=== PATIENT | male | born 1940 | race Caucasian/White ===

== ENCOUNTER 2016-12-09 13:56 | Inpatient (IN) | payer OTHER ==
[~2016-12-09] VITALS: Ht 182.9 cm; Wt 135.5 kg
--- NOTE | 2016-12-09 15:13 | DIAGNOSTIC IMAGING REPORT ---
RIGHT FOOT MIN 3 VIEWS ROUTINE CLINICAL HISTORY: Foot infection. History of amputation. POSSIBLE OSTEOMYELITIS. COMPARISON: None. DISCUSSION: There are postsurgical changes of a first through fifth transmetatarsal amputation. No destructive lesions are visualized. There are vascular calcifications present. Is difficult to visualize skin overlying the amputation site. Clinical correlation in this regard is advocated. IMPRESSION: Postsurgical changes of a transmetatarsal amputation. No conventional radiographic evidence of acute osteomyelitis. Electronically signed by: Asim Velez M.D. 12/09/2016 3:11 PM Dictated Date/Time: 12/09/2016 3:07 PM
[2016-12-09] MEDS ORDERED: LISI-725 PO (15:16)
[2016-12-09] MEDS ORDERED: GLC/500 PO (15:16)
[2016-12-09] MEDS ORDERED: ASPI81TA28 PO (15:16)
[2016-12-09 15:31] LABS: BASO % 0.1 %; BASO ABS # 0.02 K/uL (0-0.2); COMPLETE YES; EOS % 0.7 %; HEMATOCRIT 40.5 % (42-52); IG% 0.5 %; LYMPH % 10.5 %; LYMPH ABS # 1.45 K/uL (1.2-3.4); MEAN CELL VOLUME 87.9 fL (80-100); MEAN CORPUSCULAR HEMOGLOBIN 30.6 pg (25-34); MEAN CORPUSCULAR HGB CONC 34.8 g/dl (32-36); MEAN PLATELET VOLUME 9.9 fL (7.4-10.4); MONO % 6.8 %; NEUT % 81.4 %; PLATELET COUNT 306 K/uL (130-400); RED BLOOD COUNT 4.61 M/uL (4.7-6.1); WHITE BLOOD COUNT 13.76 K/uL (4.8-10.8)
[2016-12-09] MEDS ORDERED: ZOLPIDEM TARTRATE 5 MG TAB PO PRN (15:45)
[2016-12-09] MEDS ORDERED: OXYCODONE/ACETAMINOPHEN 5-325 TAB PO PRN (15:45)
[2016-12-09] MEDS ORDERED: METOCLOPRAMIDE HCL INJ 5 MG/ML 2 ML VIAL IV PRN (15:45)
[2016-12-09] MEDS ORDERED: ONDANSETRON INJ 2 MG/ML 2 ML VIAL IV PRN ×2 (15:45→17:30)
[2016-12-09] MEDS ORDERED: GLUCOSE 40% GEL 15 GM TUBE PO PRN (15:45)
[2016-12-09] MEDS ORDERED: GLUCOSE 10 TABS/TUBE PO PRN (15:45)
[2016-12-09] MEDS ORDERED: ALUMINUM/MAGNESIUM SUSP 30 ML UDC PO PRN (15:45)
[2016-12-09] MEDS ORDERED: DEXTROSE 50% 50 ML SYR IV PRN (15:45)
[2016-12-09] MEDS ORDERED: DiphenhydrAMINE HCL 50 MG/ML VIAL IV PRN (15:45)
[2016-12-09] MEDS ORDERED: GLUCAGON FOR INJ 1 MG VIAL SQ PRN (15:45)
[2016-12-09] MEDS ORDERED: MAGNESIUM HYDROXIDE SUSP 30 ML UDC PO PRN (15:45)
[2016-12-09 15:46] LABS: INR 1.2 (0.9-1.1); PARTIAL THROMBOPLASTIN RATIO 1.2; PROTHROMBIN TIME (PATIENT) 13.2 SECONDS (9.0-12.0)
[2016-12-09] MEDS ORDERED: INSULIN HUMAN REGULAR SC SCH (16:00)
[2016-12-09 16:06] LABS: BUN/CREATININE RATIO 11.4 (10-20); CREATININE 8.4 mg/dl (0.60-1.40); POTASSIUM 5.8 mmol/L (3.5-5.1)
--- NOTE | 2016-12-09 16:07 | HISTORY & PHYSICAL EXAMINATION ---
DATE OF ADMISSION: 12/09/2016 CHIEF COMPLAINT: Right foot wound. HISTORY OF PRESENT ILLNESS: A 76-year-old diabetic for the past 10 years who presents for evaluation of his right foot. He apparently had unspecified procedure which looks like a transmetatarsal amputation done by a account development executive at [facility] 3-4 days ago he days. It was Dr. Garzon who did this. He was then sent to [place]. He did not understanding anything they were saying or doing and was sent home. He saw visiting nurse today and they referred him to the hospital. [facility] came [facility]. He says he has never been here before. He does not have any pain. His foot has had a wound on if for quite some time. Denies any other medical problems. Denies any chest pain or shortness of breath. PAST MEDICAL HISTORY: Significant for: 1. Type 2 diabetes x10 years. 2. Elevated cholesterol. PAST SURGICAL HISTORY: Include: 1. Right forefoot amputation done 3-4 days ago. 2. Pilonidal cyst excision. ALLERGIES: None. CURRENT MEDICATIONS: 1. Metformin. 2. Lipitor. 3. Aspirin. SOCIAL HISTORY: Significant for a 76-year-old gentleman. He lives in [place]. He is single. He does not smoke. No alcohol intake. FAMILY HISTORY: Noncontributory. REVIEW OF SYSTEMS: Significant for diabetes. Denies any chest pain or shortness of breath. No history of DVT or PE. PHYSICAL EXAMINATION: GENERAL: Reveals a pleasant elderly male who looks to be fairly poorly kept. HEAD, EYES, EARS, NOSE, AND THROAT: Benign. NECK: Supple. No lymphadenopathy. LUNGS: Clear to auscultation. HEART: Regular rate and rhythm. ABDOMEN: Soft, nontender, nondistended. EXTREMITY EXAMINATION: Grossly neurovascularly intact except as follows: Examination of the right lower extremity reveals a transmetatarsal amputation. There is no soft tissue coverage and there is bone exposed. There is necrosis of the skin edges. No gross purulence. He can slightly dorsiflex and plantarflex his foot appropriately. X-RAYS: X-rays of the foot from today reviewed. It shows evidence of a transmetatarsal amputation. There is no significant soft tissue coverage. ASSESSMENT: A 76-year-old male diabetic, status post a right transmetatarsal amputation with obviously exposed bone and no soft tissue coverage and necrosis of the skin edges. He does not have a super active infection, but there is no way this has any chance of healing. The patient does have diffuse edema and even below knee amputation may be a little bit questionable as far as healing. PLAN: We are going to admit him to the hospital. We will start him on some antibiotics. We will get medicine evaluation and optimization. Once she is medically optimized we are going to proceed with a below knee amputation. I explained the risks and benefits and the need for this. The patient clearly understands it and wants to proceed. It is certainly possible that may not heal either. The risks and benefits of this procedure were explained including but not limited to DVT, PE, , infection, neurological injury, neurovascular injury, bleeding problems, failure to heal, need for further surgery, etc. The patient understands and desires to proceed. Informed consent was obtained. We will get a medicine consult. We will begin DVT prophylaxis including thigh-high TEDs and SCDs. We will keep him on his baby aspirin. We will plan on doing this once medically cleared, hopefully tomorrow.
[2016-12-09] MEDS ORDERED: DEXTROSE 50% 50 ML SYR IV STA (16:11)
[2016-12-09] MEDS ORDERED: NovoLIN-R INSULIN PER UNIT CHARGE IV STA (16:11)
[2016-12-09] MEDS ORDERED: ALBUTEROL 0.083% NEBU SOLN 3 ML VIAL INH STA (16:11)
--- NOTE | 2016-12-09 16:30 | DIAGNOSTIC IMAGING REPORT ---
CHEST 2 VIEWS ROUTINE CLINICAL HISTORY: Pre-op COMPARISON STUDY: No previous studies for comparison. FINDINGS: The heart is enlarged. There is no overt failure. There is no focal pulmonary consolidation. There is blunting of the posterior costophrenic angle suggesting small effusions.[ IMPRESSION: Cardiomegaly and suspected small pleural effusions. No evidence of focal pulmonary consolidation Electronically signed by: Asim Velez M.D. 12/09/2016 4:27 PM Dictated Date/Time: 12/09/2016 4:27 PM
[2016-12-09] MEDS ORDERED: SODIUM CHLORIDE 0.9% 500ML 500 ML IV STA (16:31)
[2016-12-09] MEDS ORDERED: CALCIUM GLUCONATE 10% 10 ML VIAL IV STA (16:44)
[2016-12-09] MEDS ORDERED: SODIUM POLYST. SULF SUSP 15G/60ML PO STA (17:16)
[2016-12-09] MEDS ORDERED: SODIUM CHLORIDE 0.9% 1000ML 1,000 ML IV SCH (17:16)
[2016-12-09] MEDS ORDERED: ACETAMINOPHEN 325 MG TAB PO PRN (17:30)
[2016-12-09] MEDS ORDERED: NITROGLYCERIN 0.4 MG SL PER TAB CHARGE SL PRN (17:30)
[2016-12-09] MEDS ORDERED: HydrALAZINE HCL 20 MG/ML VIAL IV PRN (17:45)
--- NOTE | 2016-12-09 19:32 | HISTORY & PHYSICAL EXAMINATION ---
DATE OF ADMISSION: 12/09/2016 HISTORY OF PRESENT ILLNESS: I am going to refer you to a history and physical by Dr. Jose David Gamble of surgery. This patient initially was evaluated for surgical admission because he has a failed transmetatarsal amputation this week and now he has a dehiscence of wound and visible bone. However, when Dr. Gamble evaluated the patient, he was planning on putting a medical consult in but subsequent labs returned the patient was found to be in acute renal failure with hyperkalemia and acute EKG changes. He subsequently was referred to our service for admission. As per Dr. Gamble's history and physical and my interview with the patient, this patient was at [facility] when he developed what sounds to be gangrenous toes. He had a resection, but was unable to be closed, he was transferred to a [place] facility where he had a falling out with the physicians there. He left AMA. He returned late last evening to his home, he was seen by visiting nurse this morning, visiting nurse saw the exposed bone and referred him to [facility]. The patient claims to have significant neuropathy of his feet. He does have some light touch intact; however, his left foot which is a not involved foot has blistering significant with abrasion injury. The patient states he has been diabetic for 10 years. He has been on oral medications of metformin, he takes lisinopril for hypertensive control and aspirin. He is a retired tow truck driver. He has no real pain of his foot right now. Dr. Gamble did see the patient, he did an evaluation of the wound in the ER. He recommended Unasyn therapy. In the ER, the patient did have peaked T waves and he was given calcium carbonate, D50 and insulin. We administered Kayexalate subsequent to that. The patient is agreeable to admission. PAST MEDICAL HISTORY: Really for his diabetes, hypertension, dyslipidemia. He has a history of rheumatic fever as a child and a pilonidal cyst excision. SOCIAL HISTORY: The patient does not drink or smoke, never has. He is retired from driving a truck. FAMILY HISTORY: Only positive for people dying of old age according to the patient. REVIEW OF SYSTEMS: Ten systems were reviewed and are negative unless listed above, the patient says other than his foot being a problem he has really been in quite good shape. He cannot recall having had blisters on his left foot, he says it must be from walking in his shoes, and he said despite his falling out with the physicians in [place], he is agreeable to likely proceed to a BKA with Dr. Gamble. PHYSICAL EXAMINATION: GENERAL: This is a pleasant gentleman. He looks older than his stated age. VITAL SIGNS: Temperature is 36.6, pulse 89, respirations 18, BP 100/61, O2 sat 98 on room air. HEENT: PERRL, EOMI. Oropharynx is dry mucous membranes. NECK: Without lymphadenopathy. There is no JVD. HEART: Irregular despite having rheumatic fever, I hear no murmurs. LUNGS: Clear without wheezes or crackles. Good air movement. ABDOMEN: Normoactive bowel sounds, soft. He has got some panus type edema and he does have some other body edema which makes me concerned this could be from his renal issue or could be from nutritionally deficient from his last hospital stay. EXTREMITIES: Left extremity has blisters both roofed and unroofed on the left foot. He has got dirt on his soles apparently walking barefooted. He does have light touch intact. His right foot is bandaged. I am going to refer you to Dr. Gamble's note. Dr. Gamble did extensive examination and dressing of this wound. He has 1-2+ edema on the left leg. NEUROLOGICALLY: He is awake, alert and appropriate. Cranial nerves II through XII are intact. LABORATORY DATA: As mentioned, shows a BUN and creatinine of 96 and 8.4 with a bicarbonate of 18 and potassium of 5.8. He has a white count of 13, H\T\H 14 and 40 and platelet count 306. Coags are with INR of 1.2. Urinalysis for sediment is pending. He had an x-ray of his foot which showed transmetatarsal amputation. He had a chest x-ray which showed no active disease in his chest. No significant pleural effusions. An EKG showing sinus rhythm with peaked T waves. ASSESSMENT: A 76-year-old male here with acute renal failure, hyperkalemia and EKG changes. PLAN: For acute renal failure. The patient will be put on a bicarbonate drip. He will have his lisinopril held. He will be given gentle hydration despite his peripheral edema. Urine will be checked for sediment and nephrology consult will be called. I did personally speak with Dr. Inocencio Blair this evening, he is aware of the case. He will come in if we need him to come in at any time. Regarding his cardiac clearance, the patient has rheumatic fever, he has peripheral edema. This certainly could be if he has some type of nephrotic syndrome or renal failure; however, we will check an echocardiogram as we may be pursuing surgery in the near future. For his hypertension, we will employ hydralazine p.r.n. for blood pressure control. For his diabetes, we will put him on a sliding-scale insulin. For his left foot wounds we will employ nursing wound care at this present time and Dr. Gamble will direct his wounds. For his foot, Unasyn will be maintained and orthopedics will be Dr. Gamble. Currently, given the fact that he has got surgery postponed DVT prevention will be based on heparin therapy. The patient is a full code.
--- NOTE | 2016-12-09 19:51 | DIAGNOSTIC IMAGING REPORT ---
RENAL ULTRASOUND HISTORY: Acute on chronic kidney injury. COMPARISON: None. FINDINGS: Right kidney: 11.0 cm. No hydronephrosis. Normal corticomedullary differentiation and cortical thickness. Left kidney: 12.5 cm. No hydronephrosis. Normal corticomedullary differentiation and cortical thickness. Focal cortical thickening at the interpolar region consistent with a prominent column of Nadeem. Bladder: No bladder wall thickening. The ureteral jets are not identified during the examination. IMPRESSION: Normal renal ultrasound. Electronically signed by: Raheem Terrazas M.D. 12/09/2016 7:49 PM Dictated Date/Time: 12/09/2016 7:47 PM
[2016-12-09 20:00] VITALS: BP 107/64; PULSE 95; TEMP 36.4; O2SAT 93; Ht 182.9 cm; Wt 135.5 kg
--- NOTE | 2016-12-09 20:01 | EMERGENCY ROOM VISIT NOTE ---
History Report prepared by Eliud: Berkley Choi Under the Supervision of: Dr. Mike Ansari M.D. First contact with patient: 14:02 Stated Complaint: RT FOOT INFECTION History of Present Illness The patient is a 76 year old male who presents to the Emergency Room with complaints of a worsening right foot infection that was noticed earlier today by his home health nurse. The patient came to the ED via ambulance from home. The patient states that he had all of his right foot partially amputated 4-5 days ago in [place] by Dr. Garzon - Podiatric Surgery due to necrosis. Dr. Garzon told the patient that he could not amputate any higher than he did, but the patient states that Dr. Garzon indicated that he needed to have further intervention on his right leg. The patient goes on to say that he just got home from a hospital in [place] 2 weeks ago, but he states he did not do any surgery there. According to the nurse, the patient left the hospital in [place] against medical advice. He states that his home health nurse evaluated his right foot today and felt that he needed to come into the ED for further evaluation and management. His home health nurse did not call Dr. Garzon prior to sending him into the ED. The patient states that he is not on any antibiotics. He denies any pain in his right foot currently, and denies any fevers, chest pain, trouble breathing, and vomiting. The patient adds that he is diabetic and states that his sugars have been normal lately. Source of History: patient, nursing staff Onset: earlier today Position: foot (right) Quality: other (infection) Timing: worsening Associated Symptoms: No chest pain, No fevers, No vomiting Note: no right foot pain, no trouble breathing Review of Systems See HPI for pertinent positives & negatives. A total of 10 systems reviewed and were otherwise negative. Past Medical & Surgical Medical Problems: (1) Acute renal failure (2) Diabetes mellitus (3) Hypertension (4) Right Foot Osteomyelitis Family History Family history was reviewed; no changes noted. Social History Marital Status: single Housing Status: lives alone Current/Historical Medications Scheduled Aspirin (Aspirin Ec), 81 MG PO DAILY Lisinopril (Zestril), 20 MG PO DAILY Metformin Hcl (Glucophage), 500 MG PO TID Allergies Coded Allergies: No Known Allergies (Unverified , 12/09/16) Physical Exam Vital Signs Date Time Temp Pulse Resp B/P Pulse Ox O2 Delivery O2 Flow Rate FiO2 12/09/16 19:00 96 19 114/69 95 12/09/16 18:21 91 18 102/61 94 Room Air 12/09/16 16:55 89 18 100/61 98 Room Air 12/09/16 14:16 102 12/09/16 14:12 36.6 104 20 103/68 94 Room Air Physical Exam Constitutional: Vital signs reviewed. Eyes: Pupils are equal round reactive to light. Conjunctiva are noninjected. ENT: Pharynx is clear without erythema or exudate. Mucous membranes are moist. Neck supple without meningeal signs. Respiratory: Clear to auscultation bilaterally. Breath sounds are equal bilaterally. Cardiovascular: Regular rate and rhythm. No rubs or gallops. GI: Soft, nondistended and nontender. Bowel sounds are present. Musculoskeletal: Bilateral pitting edema. Partially amputation of midfoot on the right side with bone exposed and gangrenous tissue in margins. Mild erythema up to the lower leg. No tenderness. No drainage. Integumentary: As above. Neurological: The patient is awake and alert. No focal deficits. Psychiatric: Normal affect. Medical Decision & Procedures ER Provider Diagnostic Interpretation: X-ray results as stated below per interpretation by me and the radiologist: RIGHT FOOT MIN 3 VIEWS ROUTINE IMPRESSION: Postsurgical changes of a transmetatarsal amputation. No conventional radiographic evidence of acute osteomyelitis. Electronically signed by: Asim Velez M.D. 12/09/2016 3:11 PM Dictated Date/Time: 12/09/2016 3:07 PM CHEST 2 VIEWS ROUTINE IMPRESSION: Cardiomegaly and suspected small pleural effusions. No evidence of focal pulmonary consolidation Electronically signed by: Asim Velez M.D. 12/09/2016 4:27 PM Dictated Date/Time: 12/09/2016 4:27 PM Laboratory Results 12/09/16 15:20 Red Blood Count 4.61, Mean Corpuscular Volume 87.9, Mean Corpuscular Hemoglobin 30.6, Mean Corpuscular Hemoglobin Concent 34.8, Mean Platelet Volume 9.9, Neutrophils (%) (Auto) 81.4, Lymphocytes (%) (Auto) 10.5, Monocytes (%) (Auto) 6.8, Eosinophils (%) (Auto) 0.7, Basophils (%) (Auto) 0.1, Neutrophils # (Auto) 11.19, Lymphocytes # (Auto) 1.45, Monocytes # (Auto) 0.93, Eosinophils # (Auto) 0.10, Basophils # (Auto) 0.02 12/09/16 15:20 Test 12/09/16 15:20 White Blood Count 13.76 K/uL (4.8-10.8) Red Blood Count 4.61 M/uL (4.7-6.1) Hemoglobin 14.1 g/dL (14.0-18.0) Hematocrit 40.5 % (42-52) Mean Corpuscular Volume 87.9 fL (80-100) Mean Corpuscular Hemoglobin 30.6 pg (25-34) Mean Corpuscular Hemoglobin Concent 34.8 g/dl (32-36) Platelet Count 306 K/uL (130-400) Mean Platelet Volume 9.9 fL (7.4-10.4) Neutrophils (%) (Auto) 81.4 % Lymphocytes (%) (Auto) 10.5 % Monocytes (%) (Auto) 6.8 % Eosinophils (%) (Auto) 0.7 % Basophils (%) (Auto) 0.1 % Neutrophils # (Auto) 11.19 K/uL (1.4-6.5) Lymphocytes # (Auto) 1.45 K/uL (1.2-3.4) Monocytes # (Auto) 0.93 K/uL (0.11-0.59) Eosinophils # (Auto) 0.10 K/uL (0-0.5) Basophils # (Auto) 0.02 K/uL (0-0.2) RDW Standard Deviation 50.1 fL (36.4-46.3) RDW Coefficient of Variation 16.2 % (11.5-14.5) Immature Granulocyte % (Auto) 0.5 % Immature Granulocyte # (Auto) 0.07 K/uL (0.00-0.02) Erythrocyte Sedimentation Rate 30 mm/hr (0-14) Prothrombin Time 13.2 SECONDS (9.0-12.0) Prothromb Time International Ratio 1.2 (0.9-1.1) Activated Partial Thromboplast Time 31.7 SECONDS (21.0-31.0) Partial Thromboplastin Ratio 1.2 Anion Gap 14.0 mmol/L (3-11) Est Creatinine Clear Calc Drug Dose 10.9 ml/min Estimated GFR () 6.5 Estimated GFR (Non- 5.6 BUN/Creatinine Ratio 11.4 (10-20) Calcium Level 8.0 mg/dl (8.5-10.1) Total Bilirubin 1.3 mg/dl (0.2-1) Direct Bilirubin 1.0 mg/dl (0-0.2) Aspartate Amino Transf (AST/SGOT) 27 U/L (15-37) Alanine Aminotransferase (ALT/SGPT) 31 U/L (12-78) Alkaline Phosphatase 246 U/L (45-117) C-Reactive Protein 3.49 mg/dl (0-0.29) Total Protein 6.2 gm/dl (6.4-8.2) Albumin 1.9 gm/dl (3.4-5.0) Laboratory results as reviewed by me. Medications Administered Medications (Trade) Dose Ordered Sig/Marcelino Route Start Time Stop Time Status Last Admin Dose Admin Insulin Human Regular (novoLIN-R U-100 PER UNIT) 10 units NOW STAT IV 12/09/16 16:11 12/09/16 16:13 DC 12/09/16 16:52 10 UNITS Dextrose (Dextrose 50% 50ML Syringe) 50 ml NOW STAT IV 12/09/16 16:11 12/09/16 16:13 DC 12/09/16 16:53 50 ML Albuterol Sulfate 2.5 mg 2.5 mg NOW STAT INH 12/09/16 16:11 12/09/16 16:13 DC 12/09/16 16:59 2.5 MG Sodium Chloride (Nss 500ml) 500 ml @ 999 mls/hr Q31M STAT IV 12/09/16 16:31 12/09/16 17:01 DC 12/09/16 16:52 999 MLS/HR Calcium Gluconate (Calcium Gluconate 10%) 1,000 mg NOW STAT IV 12/09/16 16:44 12/09/16 16:45 DC 12/09/16 17:00 1,000 MG ECG Indication: other (hyperkalemia) Rate (beats per minute): 88 Rhythm: normal sinus Findings: peaked T-waves (in precordial leads), other (QRS widening to 130 ms) Comparison ECG Date: no prior available ED Course 1403: The patient was evaluated in room C10. A complete history and physical exam was performed. 1428: The ED office secretary tried to contact Dr. Garzon, but he is out of town until Monday. 1506: I spoke with Dr. Gamble of Orthopedic Surgery. We discussed the patient. The patient will be further evaluated by him. 1515: Dr. Gamble is in the ED to evaluate the patient. 1531: Upon reevaluation, the patient appeared to be resting comfortably. I discussed today's findings with him. He verbalized agreement of the treatment plan. Dr. Gamble is going to admit the patient for a BKA. 1611: Ordered Albuterol Sulfate 2.5 mg INH, Dextrose 50 ml IV, Insulin Human Regular 10 units IV 1615: [facility]'s [facility] results. We discussed the patient and his results. The patient will be further evaluated by him. 1617: I informed Dr. Gamble that I discussed the patient's case with Dr. Salcido and that Dr. Salcido will admit the patient instead. 1630: I reassessed the patient. He informed me that he doesn't have a history of kidney problems, but he doesn't have easy access to water and has not been drinking much recently. I discussed the change in the treatment plan with him. He verbalized agreement. 1631: Ordered Sodium Chloride 500 ml @ 999 mls/hr IV 1644: Ordered Calcium Gluconate 1000 mg IV 1835: Dr. Vaz of Internal Medicine at [place] called to inform me that the patient's creatinine was not as high as it is today during his recent hospitalization. He also informed me that the patient was sent to [place] for a BKA but he refused to let the specialists evaluate him or provide him any management. Medical Decision This is a 76-year-old male who presents with a partial amputation to his right foot several days ago. I did perform a limited focused review of portions of the patient's old chart on the electronic medical record. The patient has had no prior visits to this hospital. I did evaluate the patient as noted above. The patient is presenting status post partial amputation of his right foot. The bones are exposed and there is necrosis to the soft tissue surrounding it. IV access was established. The patient was placed on a continuous medical insurance claims processor. I did order and personally review the patient's x-rays as described above. I did order and review the patient's blood work as noted in the electronic medical record. His white blood cell count is elevated. He also has a creatinine of over 8 with hyperkalemia. I did order a twelve-lead EKG which shows signs consistent with hyperkalemia including peaked T waves. He does have some widening of his QRS which I am unable to determine if this is new or old and so I did treat him with IV calcium gluconate. He was also given albuterol via nebulizer and IV insulin and dextrose for his hyperkalemia. The patient was evaluated by Dr. Gamble of orthopedics who will perform BKA. I did discuss the case with Dr. Salcido who will admit the patient. I did attempt to call his hazmat tanker driver but he was unavailable. Consults Time Called: 1503 Consulting Physician: Dr. Gamble - Orthopedic Surgery Returned Call: [address] Gamble of Orthopedic Surgery. We discussed the patient. The patient will be further evaluated by him. Additional Consults: Time Called: 1613 Consulted Physician: Dr. Salcido - [facility] Returned Call: 1615 Additional Comments: I spoke with Dr. Salcido of [facility] Hospitalist Service due to the patient's lab results. We discussed the patient and his results. The patient will be further evaluated by him. Impression Primary Impression: Acute renal failure Additional Impressions: Hyperkalemia Infection of right foot Critical Care I have personally spent 40 minutes of critical care time in the direct management of this patient. This includes bedside care, interpretation of diagnostic studies and testing, discussion with consultants and patient, and other required patient management activities. This time is in excess of all separately billable procedures. Scribe Attestation The scribe's documentation has been prepared under my direct and personally reviewed by me in its entirety. I confirm that the note above accurately reflects all work, treatment, procedures, and medical decision making performed by me. Departure Information Dispostion Being Evaluated By Hospitalist Referrals No Doctor, Assigned (PCP) Problem Qualifiers Primary Impression: Acute renal failure Acute renal failure type: unspecified Qualified Codes: N17.9 - Acute kidney failure, unspecified
[2016-12-09] MEDS ORDERED: AMPICILLIN/SULBACTAM CONSULT ACTIVE PRN ×2 (20:30)
[2016-12-09] MEDS: INSULIN ASPART 100 UNITS/ML 3 ML PEN SC SCH (21:00)
[2016-12-09] MEDS: DOCUSATE SODIUM 100 MG CAP PO SCH (21:25)
[2016-12-09] MEDS: FERROUS SULFATE 325 MG TAB PO SCH (21:26)
[2016-12-09] MEDS: AMPICILLIN/SULBACTAM SOD INJ 3,000 MG in SODIUM CHLORIDE 0.9% 100ML 100 ML IV SCH (21:27)
[2016-12-09] MEDS: HEPARIN SOD 5000 UNIT/0.5 ML CARP SQ SCH (21:27)
[2016-12-09] MEDS: SODIUM BICARBONATE 8.4% INJ 100 MEQ in SODIUM CHLORIDE 0.45% 1000ML 1,000 ML IV SCH (21:28)
[2016-12-09 22:59] VITALS: BP 107/70; PULSE 90; TEMP 36.5; O2SAT 96
[2016-12-10] VITALS (7 sets, daily range): BP systolic 98–114; BP diastolic 58–78; PULSE 87–96; TEMP 36.4–36.7; O2SAT 95–99
[2016-12-10 01:17] LABS: URINE APPEARANCE CLOUDY (CLEAR); URINE BILIRUBIN NEG (NEG); URINE COLOR DK YELLOW; URINE NITRITE NEG (NEG); URINE SPECIFIC GRAVITY 1.015 (1.000-1.030); UROBILINOGEN NEG (NEG)
[2016-12-10 01:23] LABS: MANUAL MICROSCOPIC REQUIRED? NO; REVIEW REQ? YES
[2016-12-10 01:41] LABS: URINE PATH CASTS 0-3 GRANULAR CASTS /lpf (0)
[2016-12-10 06:07] LABS: ESTIMATED AVERAGE GLUCOSE 163 mg/dl; HA1C FLAG Normal (Normal)
[2016-12-10] MEDS: INSULIN ASPART 100 UNITS/ML 3 ML PEN SC SCH ×4 (07:00→21:00)
[2016-12-10] MEDS: FERROUS SULFATE 325 MG TAB PO SCH ×3 (07:30→16:45)
[2016-12-10 07:45] LABS: HEMATOCRIT 39.6 % (42-52); MEAN CORPUSCULAR HEMOGLOBIN 31.5 pg (25-34); MEAN CORPUSCULAR HGB CONC 35.4 g/dl (32-36); MEAN PLATELET VOLUME 10.2 fL (7.4-10.4); PLATELET COUNT 302 K/uL (130-400); RED BLOOD COUNT 4.45 M/uL (4.7-6.1); WHITE BLOOD COUNT 12.59 K/uL (4.8-10.8)
[2016-12-10] MEDS: SODIUM BICARBONATE 8.4% INJ 100 MEQ in SODIUM CHLORIDE 0.45% 1000ML 1,000 ML IV SCH ×2 (08:00→17:36)
[2016-12-10 08:33] LABS: BUN/CREATININE RATIO 10.6 (10-20); CREATININE 8.4 mg/dl (0.60-1.40); POTASSIUM 5.3 mmol/L (3.5-5.1)
[2016-12-10 08:54] LABS: PHOSPHORUS 8.4 mg/dl (2.5-4.9)
[2016-12-10] MEDS ORDERED: LISINOPRIL 20 MG TAB PO SCH (09:00)
[2016-12-10] MEDS: ASPIRIN 81 MG ECTAB PO SCH (09:00)
[2016-12-10] MEDS: HEPARIN SOD 5000 UNIT/0.5 ML CARP SQ SCH ×2 (09:00→21:00)
[2016-12-10] MEDS: PANTOprazole SOD 40 MG TAB PO SCH (09:00)
[2016-12-10] MEDS: DOCUSATE SODIUM 100 MG CAP PO SCH ×2 (09:00→21:00)
--- NOTE | 2016-12-10 09:07 | PROGRESS NOTE ---
DATE: 12/10/2016 SUBJECTIVE: A 76-year-old gentleman, admitted with right forefoot amputation, gangrene and necrosis. He has been now admitted by the medicine service due to renal dysfunction. He wants to just be discharged. He does not want any further care. He is in a sound mind and just wants to go home. He just wants not to be disturbed. He knows that this is likely a terminal event if he does not seek further care. OBJECTIVE: VITAL SIGNS: Temperature is 36.5. Vital signs are stable. LABORATORY DATA: White cell count 12.59, hemoglobin 14.0, sed rate 30, C-reactive protein 3.49 and creatinine 8.40. 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 This gentleman is a fairly sick gentleman despite his appearance. He just wanted to go home. I did explain to him that he goes home without care, it likely would be a terminal event, his renal function will just deteriorate and he will likely pass away. He is fully aware of this and he just wants to go home and not be disturbed. PLAN: We will provide supportive care for this gentleman. He just needs some routine wound care. Antibiotics could be provided. Options are; no antibiotics versus maybe just some Augmentin three times a day. He should have wound care twice a day; just a wet to dry dressing would be adequate. Any questions can be directed to me at [phone]. [id number]
--- NOTE | 2016-12-10 10:24 | Nephrology Consultation ---
Nephrology Consultation Date & Providers Date of Consultation: Dec 10, 2016. Primary Care Provider: No Doctor, Assigned Referring Provider: Reason for Consultation [place] History of Present Illness Mr. Tomi Rolon is a 76-year-old male with diabetes mellitus who was admitted to [facility] yesterday evening for evaluation of an open wound on his right foot. 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 I called [facility] and was able to at least discern that serum creatinine was 4.76 on December 04, 2016. Additional records and labs are pending. The wound was not able to be effectively closed and the patient was transferred to [facility] [place], operated by [facility] for orthopedic intervention. At that time, the patient signed himself out of the hospital against medical advice. He returned home and has had routine wound care. At the encouragement of the wound care nurse, Mr Rolon presented to the emergency department at [facility] yesterday evening for evaluation of protruding bone from his wound. He was evaluated by Dr. Gamble and recommendations for a [id number] amputation were made. Patient was admitted to the medical service. I spoke with Dr. Strange yesterday evening on the phone at the time of admission. Laboratory studies are notable for renal failure with a serum creatinine of greater than 8 milligrams/deciliter. Patient was hyperkalemic with a potassium of 5.8 with a notable metabolic acidosis with an anion gap. He is hypoalbuminemic with evidence of increased total body water. calcium gluconate was administered and the patient was placed on quality assurance monitor final. EKG reviewed. Hyperkalemia was treated with a dose of Kayexalate and bicarbonate infusion was started overnight. This morning the patient passed that all IV fluids be stopped. He is insistent that he wants to go home not receive any additional medical care at this time. He was able to speak with Dr. Gamble this morning. Patient acknowledges that without appropriate medical attention his life expectancy is very limited. He did not express any discourage min discussing the dying process. He is awaiting his daughters to come to the hospital and is agreeable to letting me speak in detail with them when they arrive here. He was initially receptive to the idea of hemodialysis. He lives about [place] miles from the [facility] Dialysis unit in [facility]. Reported no in several friends were on hemodialysis. However, he is resistant to the idea of receiving any additional surgical interventions and does not want to stay in the hospital to allow appropriate initiation of dialysis. I spent at least 50 minutes with the patient discussing these issues and reviewing his goals of care. Mr. Rolon reports that his philosophy has always been to minimize medical interventions. He refused insulin in the past. The patient reports that he did regularly follow up with a doctor in [facility] but denies ever being told that he had abnormal renal function. He focuses on quality life as he perceives that. He states that he acknowledges that he will not live forever and wishes to be spend his remaining time at home watching baseball. Mr. Rolon reports that his baseline activity tolerance has been poor. He has been considering buying an electric wheelchair. He has had notable increasing lower extremity edema for months. He has dyspnea with minimal activity. He ambulates with a walker. Appetite has been poor for weeks. He lives alone and has not been preparing meals. He states that he eats mostly crackers. Past Medical/Surgical History Medical: Diabetes mellitus Diabetic foot wound Denies any known history of CKD Denies any history of cardiovascular disease Surgical: Recent foot amputation as described above Allergies Coded Allergies: No Known Allergies (Unverified , 12/09/16) Inpatient Medications Current Inpatient Medications Medications (Trade) Dose Ordered Sig/Marcelino Route Start Time Stop Time Status Last Admin Dose Admin Oxycodone/ Acetaminophen (Percocet 5-325mg Tab) `1-2 TABS FOR PAIN `1 TAB... Q4H PRN PO 12/09/16 15:45 12/23/16 15:44 Diphenhydramine HCl (Benadryl Cap) 25 mg Q8 PRN PO 12/09/16 15:45 01/08/17 15:44 Diphenhydramine HCl (Benadryl Inj) 25 mg Q8 PRN IV 12/09/16 15:45 01/08/17 15:44 Zolpidem Tartrate (Ambien Tab) 5 mg HSZ PRN PO 12/09/16 15:45 01/08/17 15:44 Metoclopramide HCl (Reglan Inj) 10 mg Q6H PRN IV 12/09/16 15:45 01/08/17 15:44 Ondansetron HCl (Zofran Inj) 4 mg Q6H PRN IV 12/09/16 15:45 01/08/17 15:44 Ferrous Sulfate (Feosol Tab) 325 mg TIDM PO 12/09/16 18:00 01/08/17 17:59 12/09/16 21:26 325 MG Al Hydroxide/Mg Hydroxide (Maalox Susp) 30 ml Q6H PRN PO 12/09/16 15:45 01/08/17 15:44 Docusate Sodium (coLACE CAP) 100 mg BID PO 12/09/16 21:00 01/08/17 20:59 12/09/16 21:25 100 MG Pantoprazole Sodium (Protonix Tab) 40 mg QAM PO 12/10/16 09:00 01/09/17 08:59 Magnesium Hydroxide (Milk Of Magnesia Susp) 30 ml Q6H PRN PO 12/09/16 15:45 01/08/17 15:44 Aspirin (Ecotrin Tab) 81 mg DAILY PO 12/10/16 09:00 01/09/17 08:59 Glucose (Glucose 40% Gel) 15-30 GRAMS 15 GRAMS... UD PRN PO 12/09/16 15:45 01/08/17 15:44 Glucose (Glucose Chew Tab) 4-8 Tablets 4 Tabl... UD PRN PO 12/09/16 15:45 01/08/17 15:44 Dextrose (Dextrose 50% 50ML Syringe) 25-50ML OF 50% DW IV FOR... UD PRN IV 12/09/16 15:45 01/08/17 15:44 Glucagon 1 mg 1 mg UD PRN SQ 12/09/16 15:45 01/08/17 15:44 Ampicillin Sodium/ Sulbactam Sodium/ Sodium Chloride (Unasyn Inj/Nss 100ml) 108 ml @ 200 mls/hr Q24H IV 12/09/16 21:00 01/20/17 20:59 12/09/16 21:27 200 MLS/HR Heparin Sodium (Porcine) (Heparin Sq 5000 Unit/0.5ml) 5,000 unit Q12 SQ 12/09/16 21:00 01/08/17 20:59 12/09/16 21:27 5,000 UNIT Acetaminophen (Tylenol Tab) 650 mg Q4H PRN PO 12/09/16 17:30 01/08/17 17:29 Ondansetron HCl (Zofran Inj) 4 mg Q6H PRN IV 12/09/16 17:30 01/08/17 17:29 Nitroglycerin (Nitrostat Tab) 0.4 mg UD PRN SL 12/09/16 17:30 01/08/17 17:29 Insulin Aspart (novoLOG ASPART) SLIDING SCALE PARAMETER ACHS SC 12/09/16 21:00 01/08/17 20:59 Hydralazine HCl 10 mg 10 mg Q4H PRN IV 12/09/16 17:45 01/08/17 17:44 Sodium Bicarbonate/ Sodium Chloride (Sodium Bicarbonate 8.4% Inj/1/2 Nss 1000ml) 1,100 ml @ 100 mls/hr Q11H IV 12/09/16 21:00 01/08/17 20:59 12/09/16 21:28 100 MLS/HR Ampicillin Sodium/ Sulbactam Sodium (Consult) 1 ea UD PRN N/A 12/09/16 20:30 01/08/17 20:29 Family History No pertinent family history Social History Smoking Status: Former Smoker Alcohol Use: occasionally Marital Status: single Housing Status: lives alone, other (two of his three daughters live locally. His oldest daughter is recovering from treatment for breast cancer. He has not been in contact with his youngest daughter for several years. She is living in [place].) Review of Systems Constitutional: + fatigue, + weakness, No chills, No fever, No sweats, No weight loss Eyes: No worsening of vision Respiratory: + dyspnea on exertion, No dyspnea at rest Cardiovascular: + edema, + orthopnea, No chest pain Abdomen: No constipation, No diarrhea, No nausea, No vomiting Genitourinary - Male: + urinary frequency, No urinary hesitancy, No urinary incontinence, No urinary retention Psychiatric: No depression symptoms, No substance abuse A complete review of systems was performed. Pertinent positives are noted above. All other systems are negative. Physical Exam Date Time Temp Pulse Resp B/P Pulse Ox O2 Delivery O2 Flow Rate FiO2 12/10/16 07:48 36.5 96 18 114/75 99 Room Air 12/10/16 04:02 Room Air 12/10/16 03:15 36.4 87 18 98/58 95 Room Air 12/10/16 00:02 Room Air 12/09/16 22:59 36.5 90 19 107/70 96 Room Air 12/09/16 22:00 Room Air 12/09/16 20:00 36.4 95 20 107/64 93 Room Air 12/09/16 20:00 36.4 95 20 107/64 93 Room Air 12/09/16 19:00 96 19 114/69 95 12/09/16 18:21 91 18 102/61 94 Room Air 12/09/16 16:55 89 18 100/61 98 Room Air 12/09/16 14:16 102 12/09/16 14:12 36.6 104 20 103/68 94 Room Air General Appearance: no apparent distress, + obese, + pertinent finding ( generalized edema) Head: normocephalic, atraumatic Eyes: normal inspection, sclerae normal ENT: normal ENT inspection, pharynx normal Neck: supple, + JVD Respiratory/Chest: lungs clear, no respiratory distress, no accessory muscle use Cardiovascular: regular rate, rhythm, + systolic murmur (soft non radiating) Abdomen/GI: non tender, soft Back: no CVA tenderness, + pertinent finding (dependent edema) Extremities/Musculoskelatal: + pertinent finding (+4 pitting BL LE edema with several bulla, R foot with dressing intact) Neurologic/Psych: alert, oriented x 3 Laboratory Results Last 24 Hours Test 12/09/16 15:20 12/09/16 21:23 12/10/16 01:00 12/10/16 06:36 White Blood Count 13.76 K/uL Red Blood Count 4.61 M/uL Hemoglobin 14.1 g/dL Hematocrit 40.5 % Mean Corpuscular Volume 87.9 fL Mean Corpuscular Hemoglobin 30.6 pg Mean Corpuscular Hemoglobin Concent 34.8 g/dl Platelet Count 306 K/uL Mean Platelet Volume 9.9 fL Neutrophils (%) (Auto) 81.4 % Lymphocytes (%) (Auto) 10.5 % Monocytes (%) (Auto) 6.8 % Eosinophils (%) (Auto) 0.7 % Basophils (%) (Auto) 0.1 % Neutrophils # (Auto) 11.19 K/uL Lymphocytes # (Auto) 1.45 K/uL Monocytes # (Auto) 0.93 K/uL Eosinophils # (Auto) 0.10 K/uL Basophils # (Auto) 0.02 K/uL RDW Standard Deviation 50.1 fL RDW Coefficient of Variation 16.2 % Immature Granulocyte % (Auto) 0.5 % Immature Granulocyte # (Auto) 0.07 K/uL Erythrocyte Sedimentation Rate 30 mm/hr Prothrombin Time 13.2 SECONDS Prothromb Time International Ratio 1.2 Activated Partial Thromboplast Time 31.7 SECONDS Partial Thromboplastin Ratio 1.2 Sodium Level 140 mmol/L Potassium Level 5.8 mmol/L Chloride Level 108 mmol/L Carbon Dioxide Level 18 mmol/L Anion Gap 14.0 mmol/L Blood Urea Nitrogen 96 mg/dl Creatinine 8.40 mg/dl Est Creatinine Clear Calc Drug Dose 10.9 ml/min Estimated GFR () 6.5 Estimated GFR (Non- 5.6 BUN/Creatinine Ratio 11.4 Random Glucose 140 mg/dl Estimated Average Glucose 163 mg/dl Hemoglobin A1c 7.3 % Calcium Level 8.0 mg/dl Total Bilirubin 1.3 mg/dl Direct Bilirubin 1.0 mg/dl Aspartate Amino Transf (AST/SGOT) 27 U/L Alanine Aminotransferase (ALT/SGPT) 31 U/L Alkaline Phosphatase 246 U/L C-Reactive Protein 3.49 mg/dl Total Protein 6.2 gm/dl Albumin 1.9 gm/dl Bedside Glucose 91 mg/dl 83 mg/dl Urine Color DK YELLOW Urine Appearance CLOUDY Urine pH 5.0 Urine Specific [place] 1.015 Urine Protein TRACE Urine Glucose (UA) NEG Urine Ketones NEG Urine Occult Blood NEG Urine Nitrite NEG Urine Bilirubin NEG Urine Urobilinogen NEG Urine Leukocyte Esterase NEG Urine WBC (Auto) 1-5 /hpf Urine RBC (Auto) 0-4 /hpf Urine Hyaline Casts (Auto) 1-5 /lpf Urine Epithelial Cells (Auto) 10-20 /lpf Urine Bacteria (Auto) NEG Urine Pathogenic Casts 0-3 GRANULAR CASTS /lpf Urine Yeast (Auto) Urine Random Sodium 45 mEq/L Test 12/10/16 07:13 White Blood Count 12.59 K/uL Red Blood Count 4.45 M/uL Hemoglobin 14.0 g/dL Hematocrit 39.6 % Mean Corpuscular Volume 89.0 fL Mean Corpuscular Hemoglobin 31.5 pg Mean Corpuscular Hemoglobin Concent 35.4 g/dl RDW Standard Deviation 51.4 fL RDW Coefficient of Variation 16.2 % Platelet Count 302 K/uL Mean Platelet Volume 10.2 fL Sodium Level 140 mmol/L Potassium Level 5.3 mmol/L Chloride Level 109 mmol/L Carbon Dioxide Level 16 mmol/L Anion Gap 15.0 mmol/L Blood Urea Nitrogen 88 mg/dl Creatinine 8.40 mg/dl Est Creatinine Clear Calc Drug Dose 10.9 ml/min Estimated GFR () 6.5 Estimated GFR (Non- 5.6 BUN/Creatinine Ratio 10.6 Random Glucose 93 mg/dl Calcium Level 8.0 mg/dl Phosphorus Level 8.4 mg/dl Albumin 1.8 gm/dl Impression (1) Acute renal insufficiency (2) Chronic kidney disease (3) Metabolic acidosis (4) Hypoalbuminemia (5) Hyperkalemia (6) Diabetes mellitus (7) Right Foot Osteomyelitis (8) Infection of right foot Mr. Tomi Rolon is a 76-year-old male with longstanding history of diabetes mellitus and a history of chronic kidney disease. At this time we do not have records identifying his true baseline renal function. Records have been requested. Creatinine was 4.76 on December 04, 2016. Creatinine now stable at greater than 8 milligram/deciliter. There are multiple manifestations of advanced renal failure. He is hyperkalemic with a metabolic acidosis. He has increased total body water. I discussed in detail indications for hemodialysis. My recommendation is for timely initiation of hemodialysis as an inpatient and subsequent appropriate orthopedic intervention for his open foot wound. Mr. Rolon refuses. He is adamant that he leaves the hospital today despite medical advice. He is accepting of the risk of . We did discuss what the dying process may look like. Unfortunately, he lives a lone and does not have many resources at home to help him at this time. His daughters live locally and he is waiting for them to come to the hospital this morning to discuss in additional detail. He states that he may consider dialysis in the future as an outpatient if he is able to return home. I explained that this may not be an option given the advanced nature of his renal impairment and the need for immediate medical treatment. He refuses any additional IVF at this time. He explained that he is accepting of the risk of . He expressed understanding of his current medical condition. We reviewed that it would not be safe to resume lisinopril or metformin at this time. We discussed the dialysis procedure and hemodialysis access placement. I discussed in detail what outpatient [facility] dialysis would entail and the potential risks and benefits. Recommendations I will speak to Mr. Rolon and his daughters. At this time, continue to hold metformin and lisinopril. Patient is not agreeable to dialysis at this time. He refused additional IVF. Oral HCO3 replacement may provide some benefit and he is agreeable. Diet appropriately restricted in potassium. Renal ultrasound was reviewed this morning. No acute renal lesions or evidence of obstruction Urine analysis and microscopy reviewed. There are granular casts and trace proteinuria. This is consistent with ATN. ADDENDUM: I returned this afternoon and had a long conversation with Mr. Rolon regarding his goals of care. He continues to vacillate between hospice and continued therapy. He is agreeable to surgery and starting hemodialysis at this time but he continues to express the stipulation that he will not permit an extended hospitalization. I spoke in detail with the patient 's daughter (Irma) on the phone. Irma told me that her father would not accept hospice care in the past but that he is usually very reluctant to accept any medical interventions. She expressed her concerns regarding her father's living situation and lack of resources. She feels limited her ability to help her father. At this time, Mr. Rolon is agreeable to hemodialysis. He has received education about the dialysis procedure and goals and limitations of therapy. He understands that dialysis will enable us to improve renal function and that the next step will be to move forward with surgery for his foot. He is agreeable to orthopedic surgery in the future. The primary goal at this time is to extend his life and hopefully provide added quality. Vascular surgery consult was requested for permcath placement. Repeat laboratory studies have been requested. SPEP/immunofixation requested. I will also check laboratory studies to evaluate for CKD/MBD with morning labs.
[2016-12-10] MEDS: CALCIUM ACETATE 667MG GELCAP PO SCH ×2 (16:45→17:35)
--- NOTE | 2016-12-10 17:31 | Progress Note ---
Subjective Date of Service: Dec 10, 2016. Subjective Pt evaluation today including: conversation w/ patient, physical exam, chart review, lab review, review of studies, conversation w/ art consultant, review of inpatient medication list pt notes that he's feeling fine. notes that he wants to go home and it's OK if he dies and it's OK if that dying also entails a lot of suffering, but conversely says that he'd be willing to start dialysis as an outpatient if that' s what we want him to do. ~45-60mins face to face in the room discussing all this. he notes that he believes that when God says our number is up, it's time. notes that he's not afraid to . explained that with high K he could quickly in the next few days but also w ARF and foot infection if he didn't abruptly of hyperkalemia mediated arrhythmia, he likely would have a slow progressive, suffering decline over several months. further tried to impart that his acceptance of is a perfectly healthy viewpoint, but that he was paradoxically wanting to go home and while at the same time wanting to go home and start dialysis to try to live longer - making it difficult for me to feel comfortable with sending him home on hospice with a mixed message like that. nephrology joined discussion as well and together we tried to explain what treatment would look/feel like and why right now it would entail staying in hospital, and what not treating would look/feel like and how it would likely bring on more suffering than he realizes. after lengthy discussion he consented to stay, "because that's what you guys want me to do" (but seemed to want to be treated of his own volition) Problem List Medical Problems: (1) Diabetes mellitus Status: Chronic (2) Hyperkalemia Status: Acute (3) Hypertension Status: Chronic (4) Infection of right foot Status: Acute Review of Systems food aversion - off and on for the last few weeks foot wound no pain no other complaints, ROS otherwise negative except for as above Objective Vital Signs Date Time Temp Pulse Resp B/P Pulse Ox O2 Delivery O2 Flow Rate FiO2 12/10/16 16:29 36.7 91 18 109/78 97 Room Air 12/10/16 16:00 Room Air 12/10/16 13:28 36.4 88 18 111/73 97 Room Air 12/10/16 12:00 99 Room Air 12/10/16 08:00 99 Room Air 12/10/16 07:48 36.5 96 18 114/75 99 Room Air 12/10/16 04:02 Room Air 12/10/16 03:15 36.4 87 18 98/58 95 Room Air 12/10/16 00:02 Room Air 12/09/16 22:59 36.5 90 19 107/70 96 Room Air 12/09/16 22:00 Room Air 12/09/16 20:00 36.4 95 20 107/64 93 Room Air 12/09/16 20:00 36.4 95 20 107/64 93 Room Air 12/09/16 19:00 96 19 114/69 95 12/09/16 18:21 91 18 102/61 94 Room Air Physical Exam General Appearance: no apparent distress Eyes: EOMI ENT: hearing grossly normal Neck: trachea midline Respiratory/Chest: no respiratory distress, no accessory muscle use Neurologic/Psychiatric: leave specialist II-XII nml as tested, alert, normal mood/affect Skin: + pertinent finding (somewhat ashen complexion) Laboratory Results Last 24 Hours Test 12/09/16 21:23 12/10/16 01:00 12/10/16 06:36 12/10/16 07:13 Bedside Glucose 91 mg/dl 83 mg/dl Urine Color DK YELLOW Urine Appearance CLOUDY Urine pH 5.0 Urine Specific [place] 1.015 Urine Protein TRACE Urine Glucose (UA) NEG Urine Ketones NEG Urine Occult Blood NEG Urine Nitrite NEG Urine Bilirubin NEG Urine Urobilinogen NEG Urine Leukocyte Esterase NEG Urine WBC (Auto) 1-5 /hpf Urine RBC (Auto) 0-4 /hpf Urine Hyaline Casts (Auto) 1-5 /lpf Urine Epithelial Cells (Auto) 10-20 /lpf Urine Bacteria (Auto) NEG Urine Pathogenic Casts 0-3 GRANULAR CASTS /lpf Urine Yeast (Auto) Urine Random Sodium 45 mEq/L White Blood Count 12.59 K/uL Red Blood Count 4.45 M/uL Hemoglobin 14.0 g/dL Hematocrit 39.6 % Mean Corpuscular Volume 89.0 fL Mean Corpuscular Hemoglobin 31.5 pg Mean Corpuscular Hemoglobin Concent 35.4 g/dl RDW Standard Deviation 51.4 fL RDW Coefficient of Variation 16.2 % Platelet Count 302 K/uL Mean Platelet Volume 10.2 fL Sodium Level 140 mmol/L Potassium Level 5.3 mmol/L Chloride Level 109 mmol/L Carbon Dioxide Level 16 mmol/L Anion Gap 15.0 mmol/L Blood Urea Nitrogen 88 mg/dl Creatinine 8.40 mg/dl Est Creatinine Clear Calc Drug Dose 10.9 ml/min Estimated GFR () 6.5 Estimated GFR (Non- 5.6 BUN/Creatinine Ratio 10.6 Random Glucose 93 mg/dl Calcium Level 8.0 mg/dl Phosphorus Level 8.4 mg/dl Albumin 1.8 gm/dl Test 12/10/16 11:21 12/10/16 16:08 Bedside Glucose 105 mg/dl 97 mg/dl Assessment and Plan ARF -lengthy discussion on goals of care; he talked at times like he would want home with comfort care and other times about wanting HD. since home with comfort care could lead to irrevocable consequences, after lengthy discussion he consented to trial of treatment -resume IV fluids as per nephro (pt was refusing) -consult vascular surg for dialysis cath -renal US normal, ARF likely on the basis of HTN/DM +/- effects of infection and other possible [id number]-past influences that might have been better managed had he sought care (ie ?did he have episodes of being dry given poorer intake but he didn't seek care and continued lisinopril and metformin, hence worsening his situation?) hyperkalemia -improving - relates to renal failure - continue to follow metabolic acidosis -from renal failure, continue to follow osteomyelitis and foot infection -continue wound care, resume unasyn (pt was refusing) -continue surgical management as per ortho HTN -hydralazine prn DM -A1c low 7's -continue current treatment and follow DVT proph -heparin SQ again at least 45-60mins face to face in the room
[2016-12-10] MEDS: SODIUM BICARBONATE 650 MG TAB PO SCH (21:00)
[2016-12-10 21:23] LABS: BUN/CREATININE RATIO 11.3 (10-20); CALCIUM 7.6 mg/dl (8.5-10.1); CREATININE 8.4 mg/dl (0.60-1.40); POTASSIUM 5.5 mmol/L (3.5-5.1)
[2016-12-10] MEDS: AMPICILLIN/SULBACTAM SOD INJ 3,000 MG in SODIUM CHLORIDE 0.9% 100ML 100 ML IV SCH (22:00)
[2016-12-11 00:09] VITALS: BP 112/80; PULSE 89; TEMP 36.4; O2SAT 97
[2016-12-11 04:38] VITALS: BP 114/76; PULSE 87; TEMP 36.3; O2SAT 94
[2016-12-11] MEDS: SODIUM BICARBONATE 8.4% INJ 100 MEQ in SODIUM CHLORIDE 0.45% 1000ML 1,000 ML IV SCH (05:24)
[2016-12-11] MEDS: INSULIN ASPART 100 UNITS/ML 3 ML PEN SC SCH ×4 (07:00→21:00)
[2016-12-11] MEDS: CALCIUM ACETATE 667MG GELCAP PO SCH ×3 (07:30→16:45)
[2016-12-11] MEDS: FERROUS SULFATE 325 MG TAB PO SCH ×3 (07:30→16:45)
[2016-12-11 07:41] VITALS: BP 113/76; PULSE 90; O2SAT 97
[2016-12-11] MEDS: SODIUM BICARBONATE 650 MG TAB PO SCH ×2 (09:00→21:00)
[2016-12-11] MEDS: HEPARIN SOD 5000 UNIT/0.5 ML CARP SQ SCH ×2 (09:00→21:00)
[2016-12-11] MEDS: DOCUSATE SODIUM 100 MG CAP PO SCH ×2 (09:00→21:00)
[2016-12-11] MEDS: PANTOprazole SOD 40 MG TAB PO SCH (09:00)
[2016-12-11] MEDS: ASPIRIN 81 MG ECTAB PO SCH (09:00)
--- NOTE | 2016-12-11 10:24 | Nephrology Progress Note ---
Nephrology Progress Note Date of Service Dec 11, 2016. Chief Complaint CAROLYNE Subjective No acute events overnight. I had an extended conversation with Mr. Mecrado this morning. There were specific details regarding dialysis and our conversations from yesterday which he did not remember. These include the time commitment for dialysis, the importance of laboratory studies, the importance of stopping metformin and relying on insulin. He reported some confusion over the role of medications. He asked this morning that each medication and laboratory study be explained to him. He has been intermittently refusing blood work and medications since yesterday. He reports that he is more comfortable complying with medications and laboratory studies now that they have been explained. He also acknowledged the importance and necessity of medications and medications to dialysis. We again addressed goals of care. Mr. Mercado clearly stated DNR/DNI wishes. He described watching his grandfather suffer at the end of life and expressed that he would not wish the same for himself. Tomi states that his primary goal at this time is to start dialysis as necessary to enable follow through with surgery. He understands the reasonable expectation that hemodialysis would be part of his life on a regular basis. After a reminder, he was able to recall that incenter hemodialysis would approximately 3 treatments of 4 hours each week. He is comfortable with this. He states that treatments are worth it if they enable him to continue to watch baseball and get to know his granddaughter better. He states that he would be willing to undergo AVF placement in the future and described friends with AVF to confirm his understanding. Medical records from [facility] and [facility] were reviewed today. Review of Systems A complete review of systems was performed. Pertinent positives are noted above. All other systems are negative. Vital Signs Last 8 Hrs Date Time Temp Pulse Resp B/P Pulse Ox O2 Delivery O2 Flow Rate FiO2 12/11/16 08:00 Room Air 12/11/16 07:41 90 18 113/76 97 Room Air 12/11/16 04:38 36.3 87 18 114/76 94 Room Air 12/11/16 04:00 Room Air I & O 24-Hour Column 12/11/16 08:00 Intake Total 1790 ml Balance 1790 ml Last Recorded Weight Weight (Kilograms): 132.300 Physical Exam General Appearance: WD/WN, no apparent distress Head: normocephalic, atraumatic Eyes: normal inspection, sclerae normal ENT: normal ENT inspection, pharynx normal Neck: supple, no JVD Respiratory/Chest: lungs clear, + rales (bibasilar) Cardiovascular: regular rate, rhythm, no murmur Abdomen/GI: non tender, soft Extremities/Musculoskelatal: normal inspection, no pedal edema Neurologic/Psych: alert, normal mood/affect, + pertinent finding (normal immediate recall of objects) Family History No pertinent family history Social History Alcohol Use: occasionally Marital Status: single Housing Status: lives alone, other (two of his three daughters live locally. His oldest daughter is recovering from treatment for breast cancer. He has not been in contact with his youngest daughter for several years. She is living in [place].) Laboratory Results Past 24 Hours 12/10/16 20:20 Test 12/10/16 11:21 12/10/16 16:08 12/10/16 20:20 12/10/16 20:30 Bedside Glucose 105 mg/dl (70-99) 97 mg/dl (70-99) 96 mg/dl (70-99) Anion Gap 17.0 mmol/L (3-11) Est Creatinine Clear Calc Drug Dose 10.9 ml/min Estimated GFR () 6.5 Estimated GFR (Non- 5.6 BUN/Creatinine Ratio 11.3 (10-20) Calcium Level 7.6 mg/dl (8.5-10.1) Test 12/11/16 04:44 12/11/16 07:05 12/11/16 09:41 Bedside Glucose 84 mg/dl (70-99) Allergies Coded Allergies: No Known Allergies (Unverified , 12/09/16) Medications Current Inpatient Medications Medications (Trade) Dose Ordered Sig/Marcelino Route Start Time Stop Time Status Last Admin Dose Admin Oxycodone/ Acetaminophen (Percocet 5-325mg Tab) `1-2 TABS FOR PAIN `1 TAB... Q4H PRN PO 12/09/16 15:45 12/23/16 15:44 Diphenhydramine HCl (Benadryl Cap) 25 mg Q8 PRN PO 12/09/16 15:45 01/08/17 15:44 Diphenhydramine HCl (Benadryl Inj) 25 mg Q8 PRN IV 12/09/16 15:45 01/08/17 15:44 Zolpidem Tartrate (Ambien Tab) 5 mg HSZ PRN PO 12/09/16 15:45 01/08/17 15:44 Metoclopramide HCl (Reglan Inj) 10 mg Q6H PRN IV 12/09/16 15:45 01/08/17 15:44 Ferrous Sulfate (Feosol Tab) 325 mg TIDM PO 12/09/16 18:00 01/08/17 17:59 12/09/16 21:26 325 MG Al Hydroxide/Mg Hydroxide (Maalox Susp) 30 ml Q6H PRN PO 12/09/16 15:45 01/08/17 15:44 Docusate Sodium (coLACE CAP) 100 mg BID PO 12/09/16 21:00 01/08/17 20:59 12/09/16 21:25 100 MG Pantoprazole Sodium (Protonix Tab) 40 mg QAM PO 12/10/16 09:00 01/09/17 08:59 Magnesium Hydroxide (Milk Of Magnesia Susp) 30 ml Q6H PRN PO 12/09/16 15:45 01/08/17 15:44 Aspirin (Ecotrin Tab) 81 mg DAILY PO 12/10/16 09:00 01/09/17 08:59 Glucose (Glucose 40% Gel) 15-30 GRAMS 15 GRAMS... UD PRN PO 12/09/16 15:45 01/08/17 15:44 Glucose (Glucose Chew Tab) 4-8 Tablets 4 Tabl... UD PRN PO 12/09/16 15:45 01/08/17 15:44 Dextrose (Dextrose 50% 50ML Syringe) 25-50ML OF 50% DW IV FOR... UD PRN IV 12/09/16 15:45 01/08/17 15:44 Glucagon 1 mg 1 mg UD PRN SQ 12/09/16 15:45 01/08/17 15:44 Ampicillin Sodium/ Sulbactam Sodium/ Sodium Chloride (Unasyn Inj/Nss 100ml) 108 ml @ 200 mls/hr Q24H IV 12/09/16 21:00 01/20/17 20:59 12/10/16 22:00 200 MLS/HR Heparin Sodium (Porcine) (Heparin Sq 5000 Unit/0.5ml) 5,000 unit Q12 SQ 12/09/16 21:00 01/08/17 20:59 12/09/16 21:27 5,000 UNIT Acetaminophen (Tylenol Tab) 650 mg Q4H PRN PO 12/09/16 17:30 01/08/17 17:29 Ondansetron HCl (Zofran Inj) 4 mg Q6H PRN IV 12/09/16 17:30 01/08/17 17:29 Nitroglycerin (Nitrostat Tab) 0.4 mg UD PRN SL 12/09/16 17:30 01/08/17 17:29 Insulin Aspart (novoLOG ASPART) SLIDING SCALE PARAMETER ACHS SC 12/09/16 21:00 01/08/17 20:59 Hydralazine HCl 10 mg 10 mg Q4H PRN IV 12/09/16 17:45 01/08/17 17:44 Sodium Bicarbonate/ Sodium Chloride (Sodium Bicarbonate 8.4% Inj/1/2 Nss 1000ml) 1,100 ml @ 100 mls/hr Q11H IV 12/09/16 21:00 01/08/17 20:59 12/11/16 05:24 100 MLS/HR Ampicillin Sodium/ Sulbactam Sodium (Consult) 1 ea UD PRN N/A 12/09/16 20:30 01/08/17 20:29 Sodium Bicarbonate (Sodium Bicarbonate Tab) 1,300 mg BID PO 12/10/16 21:00 01/09/17 20:59 Calcium Acetate (Phoslo Cap) 667 mg TIDM PO 12/10/16 16:45 01/09/17 16:44 Impression (1) Acute renal insufficiency (2) Chronic kidney disease (3) Metabolic acidosis (4) Hypoalbuminemia (5) Hyperkalemia (6) Diabetes mellitus (7) Right Foot Osteomyelitis (8) Infection of right foot Mr. Tomi Mercado is a 76-year-old male with longstanding history of diabetes mellitus and a history of chronic kidney disease. Baseline creatinine of 1.9 mg/dL. He developed CAROLYNE consistent with ATN following TMA in November. Records from [facility] and [facility] were reviewed today. Mr. Mercado initially refused AM labs this morning but is now more agreeable. He has been hyperkalemic with a metabolic acidosis and with no signs of renal recovery. He has markedly hypervolemia with hypoalbuminemia. My recommendation is for timely initiation of hemodialysis as an inpatient and subsequent appropriate orthopedic intervention for his open foot wound. Mr. Mercado initially refused but is now agreeable. We spent at least 30 minutes reviewing goals of care this morning. We discussed the plan of care in detail. 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
[2016-12-11] MEDS: SODIUM BICARBONATE 8.4% INJ 150 MEQ in STERILE WATER 1000 ML 1,000 ML IV SCH ×2 (10:46→22:00)
--- NOTE | 2016-12-11 10:50 | PROGRESS NOTE ---
DATE: 12/11/2016 SUBJECTIVE: A 76-year-old gentleman admitted status post a right forefoot amputation with osteomyelitis and necrosis. He was wanting to leave yesterday but somebody must have talked to him and he stayed in the hospital. He has got no new complaints. His foot does not really hurt. He has now been open to the idea of dialysis. He wants to get his kidneys fixed up before he does anything with this foot by discussion today. OBJECTIVE: VITAL SIGNS: Temperature is 36.3. Vital signs stable. GENERAL: Reveals a pleasant, elderly male. He is sitting up in bed, looks pretty comfortable. EXTREMITIES: Examination of the right foot reveals a large open wound with some necrosis at the edges. No gross pus. Bone is exposed. ASSESSMENT: A 76-year-old male who is status post a right transmetatarsal amputation with chronic osteomyelitis and no soft tissue coverage and necrosis. PLAN: At this point, the plan is to begin dialysis and get his kidney function improved. He is still as yet to make a decision at this point on whether to proceed with amputation. We will continue to follow him while in the hospital. His cellulitis, the slight redness in his legs seems to be improved, possibly related to the antibiotic management and just elevation. Any questions can be directed to me at [phone]. We will begin routine wound care to his right foot.
[2016-12-11 11:21] VITALS: BP 120/77; PULSE 82; TEMP 36.4; O2SAT 97
[2016-12-11 11:29] LABS: MEAN CELL VOLUME 89.5 fL (80-100); MEAN CORPUSCULAR HEMOGLOBIN 31.4 pg (25-34); MEAN CORPUSCULAR HGB CONC 35.1 g/dl (32-36); MEAN PLATELET VOLUME 10.2 fL (7.4-10.4); PLATELET COUNT 249 K/uL (130-400); RED BLOOD COUNT 4.58 M/uL (4.7-6.1); WHITE BLOOD COUNT 11.57 K/uL (4.8-10.8)
[2016-12-11 12:07] LABS: BUN/CREATININE RATIO 10.3 (10-20); CREATININE 8.7 mg/dl (0.60-1.40); POTASSIUM 5.4 mmol/L (3.5-5.1)
[2016-12-11 12:14] LABS: PHOSPHORUS 8.4 mg/dl (2.5-4.9)
--- NOTE | 2016-12-11 14:45 | Progress Note ---
Subjective Date of Service: Dec 11, 2016. Subjective Pt evaluation today including: chart review, lab review, conversation w/ urban design consultant, review of inpatient medication list d/w nephrology when i went to see pt he was sleeping comfortably. currently in the interest of not upsetting/agitating him and possibly causing him to sign out AMA (as he did before) and therefore risking suffering and , will allow to sleep for now, hopefully will be able to revisit later. Problem List Medical Problems: (1) Diabetes mellitus Status: Chronic (2) Hyperkalemia Status: Acute (3) Hypertension Status: Chronic (4) Infection of right foot Status: Acute Objective Vital Signs Date Time Temp Pulse Resp B/P Pulse Ox O2 Delivery O2 Flow Rate FiO2 12/11/16 12:00 Room Air 12/11/16 11:21 36.4 82 18 120/77 97 Room Air 12/11/16 08:00 Room Air 12/11/16 07:41 90 18 113/76 97 Room Air 12/11/16 04:38 36.3 87 18 114/76 94 Room Air 12/11/16 04:00 Room Air 12/11/16 00:09 36.4 89 18 112/80 97 Room Air 12/11/16 00:02 Room Air 12/10/16 20:00 Room Air 12/10/16 19:17 36.5 90 18 107/70 95 Room Air 12/10/16 16:29 36.7 91 18 109/78 97 Room Air 12/10/16 16:00 Room Air Physical Exam General Appearance: no apparent distress Neck: trachea midline Respiratory/Chest: no respiratory distress, no accessory muscle use Skin: + pertinent finding (ongoing ashen color) Laboratory Results Last 24 Hours Test 12/10/16 16:08 12/10/16 20:20 12/10/16 20:30 12/11/16 07:05 Bedside Glucose 97 mg/dl 96 mg/dl 84 mg/dl Sodium Level 142 mmol/L Potassium Level 5.5 mmol/L Chloride Level 108 mmol/L Carbon Dioxide Level 17 mmol/L Anion Gap 17.0 mmol/L Blood Urea Nitrogen 95 mg/dl Creatinine 8.40 mg/dl Est Creatinine Clear Calc Drug Dose 10.9 ml/min Estimated GFR () 6.5 Estimated GFR (Non- 5.6 BUN/Creatinine Ratio 11.3 Random Glucose 102 mg/dl Calcium Level 7.6 mg/dl Test 12/11/16 11:00 12/11/16 11:13 White Blood Count 11.57 K/uL Red Blood Count 4.58 M/uL Hemoglobin 14.4 g/dL Hematocrit 41.0 % Mean Corpuscular Volume 89.5 fL Mean Corpuscular Hemoglobin 31.4 pg Mean Corpuscular Hemoglobin Concent 35.1 g/dl RDW Standard Deviation 52.2 fL RDW Coefficient of Variation 16.3 % Platelet Count 249 K/uL Mean Platelet Volume 10.2 fL Sodium Level 140 mmol/L Potassium Level 5.4 mmol/L Chloride Level 106 mmol/L Carbon Dioxide Level 18 mmol/L Anion Gap 16.0 mmol/L Blood Urea Nitrogen 90 mg/dl Creatinine 8.70 mg/dl Est Creatinine Clear Calc Drug Dose 10.5 ml/min Estimated GFR () 6.3 Estimated GFR (Non- 5.4 BUN/Creatinine Ratio 10.3 Random Glucose 89 mg/dl Calcium Level 8.0 mg/dl Phosphorus Level 8.4 mg/dl Albumin 1.8 gm/dl 25-Hydroxy Vitamin D Total 12.4 ng/ml Parathyroid Hormone (Intact) 703.6 pg/mL Bedside Glucose 90 mg/dl Assessment and Plan ARF -IVF, HD access --> HD to hopefully start tomorrow hyperkalemia -improving - relates to renal failure - continue to follow, has improved metabolic acidosis -from renal failure, continue to follow, has improved osteomyelitis and foot infection -continue wound care, continue unasyn -continue surgical management as per ortho, apparently was referred to [facility] for BKA before, but left AMA - currently not septic, nothing appearing aggressively progressive - he wants to deal with kidney issues first, and since things appear reasonable - can take care of things in definitive fashion as he prefers HTN -hydralazine prn, likely management via HD to start tomorrow DM -A1c low 7's -continue current treatment and follow, sugars adequate D deficiency and secondary hyperparathyroidism -related to CKD, and likely region/seasonal influences -Drisdol + D DVT proph -heparin SQ
[2016-12-11 15:34] VITALS: BP 113/73; PULSE 95; TEMP 36.4; O2SAT 93
[2016-12-11 19:45] VITALS: BP 103/60; PULSE 95; TEMP 36.3; O2SAT 94
[2016-12-11] MEDS: AMPICILLIN/SULBACTAM SOD INJ 3,000 MG in SODIUM CHLORIDE 0.9% 100ML 100 ML IV SCH (21:00)
[2016-12-12] VITALS (9 sets, daily range): BP systolic 109–118; BP diastolic 67–79; PULSE 88–91; TEMP 36.1–36.4; O2SAT 94–97
[2016-12-12] MEDS: INSULIN ASPART 100 UNITS/ML 3 ML PEN SC SCH ×4 (08:20→21:00)
[2016-12-12] MEDS: ASPIRIN 81 MG ECTAB PO SCH (08:21)
[2016-12-12] MEDS: CALCIUM ACETATE 667MG GELCAP PO SCH ×4 (08:21→17:17)
[2016-12-12] MEDS: CHOLECALCIFEROL 1000 INTER.UNIT TAB PO SCH (08:21)
[2016-12-12] MEDS: SODIUM BICARBONATE 650 MG TAB PO SCH (08:21)
[2016-12-12] MEDS: FERROUS SULFATE 325 MG TAB PO SCH ×3 (08:21→17:17)
[2016-12-12] MEDS: PANTOprazole SOD 40 MG TAB PO SCH (08:22)
[2016-12-12] MEDS: DOCUSATE SODIUM 100 MG CAP PO SCH (08:22)
[2016-12-12] MEDS: HEPARIN SOD 5000 UNIT/0.5 ML CARP SQ SCH (08:22)
--- NOTE | 2016-12-12 09:11 | Nephrology Progress Note ---
Nephrology Progress Note Date of Service Dec 12, 2016. Chief Complaint CAROLYNE Subjective Mr. Mercado has been refusing labs. This morning, Mr. Mercado and I reviewed his personal wishes and goals of care. He definitely stated that he is reconciled to going home with hospice. After spending the night in the hospital, he decided that dialysis is not consistent with his personal wishes. He feels that home with hospice is most appropriate. He was able to communicate that he understood what dying with renal failure or sepsis may look like. He understands the low likelihood of renal recovery. He is accepting of discussing hospice options to assist with symptom and palliative management of his comorbid conditions. Review of Systems A complete review of systems was performed. Pertinent positives are noted above. All other systems are negative. Vital Signs Last 8 Hrs Date Time Temp Pulse Resp B/P Pulse Ox O2 Delivery O2 Flow Rate FiO2 12/12/16 07:47 36.3 90 20 114/73 94 Room Air 12/12/16 04:00 Room Air 12/12/16 03:59 36.3 88 18 109/71 95 Room Air I & O 24-Hour Column 12/12/16 08:00 Intake Total 3302 ml Balance 3302 ml Last Recorded Weight Weight (Kilograms): 135.500 Physical Exam General Appearance: no apparent distress Head: normocephalic, atraumatic Eyes: normal inspection, sclerae normal ENT: normal ENT inspection, pharynx normal Neck: supple, no JVD Respiratory/Chest: lungs clear, no respiratory distress, no accessory muscle use Cardiovascular: regular rate, rhythm, no gallop, no murmur Abdomen/GI: non tender, soft Extremities/Musculoskelatal: normal inspection, + pedal edema (+4 pitting BL and dependent edema) Neurologic/Psych: alert, normal mood/affect, oriented x 3 Family History No pertinent family history Social History Alcohol Use: occasionally Marital Status: single Housing Status: lives alone, other (two of his three daughters live locally. His oldest daughter is recovering from treatment for breast cancer. He has not been in contact with his youngest daughter for several years. She is living in [place].) Laboratory Results Past 24 Hours 12/11/16 11:00 12/11/16 11:00 Test 12/11/16 11:00 12/11/16 11:13 12/11/16 16:25 12/11/16 20:17 Red Blood Count 4.58 M/uL (4.7-6.1) Mean Corpuscular Volume 89.5 fL (80-100) Mean Corpuscular Hemoglobin 31.4 pg (25-34) Mean Corpuscular Hemoglobin Concent 35.1 g/dl (32-36) RDW Standard Deviation 52.2 fL (36.4-46.3) RDW Coefficient of Variation 16.3 % (11.5-14.5) Mean Platelet Volume 10.2 fL (7.4-10.4) Anion Gap 16.0 mmol/L (3-11) Est Creatinine Clear Calc Drug Dose 10.5 ml/min Estimated GFR () 6.3 Estimated GFR (Non- 5.4 BUN/Creatinine Ratio 10.3 (10-20) Calcium Level 8.0 mg/dl (8.5-10.1) Phosphorus Level 8.4 mg/dl (2.5-4.9) Albumin 1.8 gm/dl (3.4-5.0) 25-Hydroxy Vitamin D Total 12.4 ng/ml (30-100) Parathyroid Hormone (Intact) 703.6 pg/mL (11.1-79.5) Bedside Glucose 90 mg/dl (70-99) 115 mg/dl (70-99) 82 mg/dl (70-99) Test 12/12/16 04:44 12/12/16 06:18 Bedside Glucose 116 mg/dl (70-99) Allergies Coded Allergies: No Known Allergies (Unverified , 12/09/16) Medications Current Inpatient Medications Medications (Trade) Dose Ordered Sig/Marcelino Route Start Time Stop Time Status Last Admin Dose Admin Oxycodone/ Acetaminophen (Percocet 5-325mg Tab) `1-2 TABS FOR PAIN `1 TAB... Q4H PRN PO 12/09/16 15:45 12/23/16 15:44 Diphenhydramine HCl (Benadryl Cap) 25 mg Q8 PRN PO 12/09/16 15:45 01/08/17 15:44 Diphenhydramine HCl (Benadryl Inj) 25 mg Q8 PRN IV 12/09/16 15:45 01/08/17 15:44 Zolpidem Tartrate (Ambien Tab) 5 mg HSZ PRN PO 12/09/16 15:45 01/08/17 15:44 Metoclopramide HCl (Reglan Inj) 10 mg Q6H PRN IV 12/09/16 15:45 01/08/17 15:44 Ferrous Sulfate (Feosol Tab) 325 mg TIDM PO 12/09/16 18:00 01/08/17 17:59 12/12/16 08:21 325 MG Al Hydroxide/Mg Hydroxide (Maalox Susp) 30 ml Q6H PRN PO 12/09/16 15:45 01/08/17 15:44 Docusate Sodium (coLACE CAP) 100 mg BID PO 12/09/16 21:00 01/08/17 20:59 12/09/16 21:25 100 MG Pantoprazole Sodium (Protonix Tab) 40 mg QAM PO 12/10/16 09:00 01/09/17 08:59 12/12/16 08:22 40 MG Magnesium Hydroxide (Milk Of Magnesia Susp) 30 ml Q6H PRN PO 12/09/16 15:45 01/08/17 15:44 Aspirin (Ecotrin Tab) 81 mg DAILY PO 12/10/16 09:00 01/09/17 08:59 12/12/16 08:21 81 MG Glucose (Glucose 40% Gel) 15-30 GRAMS 15 GRAMS... UD PRN PO 12/09/16 15:45 01/08/17 15:44 Glucose (Glucose Chew Tab) 4-8 Tablets 4 Tabl... UD PRN PO 12/09/16 15:45 01/08/17 15:44 Dextrose (Dextrose 50% 50ML Syringe) 25-50ML OF 50% DW IV FOR... UD PRN IV 12/09/16 15:45 01/08/17 15:44 Glucagon 1 mg 1 mg UD PRN SQ 12/09/16 15:45 01/08/17 15:44 Ampicillin Sodium/ Sulbactam Sodium/ Sodium Chloride (Unasyn Inj/Nss 100ml) 108 ml @ 200 mls/hr Q24H IV 12/09/16 21:00 01/20/17 20:59 12/11/16 21:00 200 MLS/HR Heparin Sodium (Porcine) (Heparin Sq 5000 Unit/0.5ml) 5,000 unit Q12 SQ 12/09/16 21:00 01/08/17 20:59 12/09/16 21:27 5,000 UNIT Acetaminophen (Tylenol Tab) 650 mg Q4H PRN PO 12/09/16 17:30 01/08/17 17:29 Ondansetron HCl (Zofran Inj) 4 mg Q6H PRN IV 12/09/16 17:30 01/08/17 17:29 Nitroglycerin (Nitrostat Tab) 0.4 mg UD PRN SL 12/09/16 17:30 01/08/17 17:29 Insulin Aspart (novoLOG ASPART) SLIDING SCALE PARAMETER ACHS SC 12/09/16 21:00 01/08/17 20:59 Hydralazine HCl (HydrALAZINE INJ) 10 mg Q4H PRN IV 12/09/16 17:45 01/08/17 17:44 Ampicillin Sodium/ Sulbactam Sodium (Consult) 1 ea UD PRN N/A 12/09/16 20:30 01/08/17 20:29 Sodium Bicarbonate (Sodium Bicarbonate Tab) 1,300 mg BID PO 12/10/16 21:00 01/09/17 20:59 12/12/16 08:21 1,300 MG Calcium Acetate 667 mg 667 mg TIDM PO 12/10/16 16:45 01/09/17 16:44 Sodium Bicarbonate/ Sterile Water (Sodium Bicarbonate 8.4% Inj/Sterile Water 1000 ml) 1,150 ml @ 100 mls/hr [id number] IV 12/11/16 10:30 01/10/17 09:59 12/11/16 22:00 100 MLS/HR Ergocalciferol (Vitamin D Cap) 50,000 interunit Mo@2100 PO 12/12/16 21:00 01/11/17 20:59 Cholecalciferol (Vitamin D Tab) 2,000 inter.unit QAM PO 12/12/16 09:00 01/11/17 08:59 12/12/16 08:21 2,000 INTER.UNIT Impression (1) Acute renal insufficiency (2) Chronic kidney disease (3) Metabolic acidosis (4) Hypoalbuminemia (5) Hyperkalemia (6) Diabetes mellitus (7) Right Foot Osteomyelitis (8) Infection of right foot Mr. Tomi Mercado is a 76-year-old male with diabetes mellitus and chronic kidney disease. Baseline creatinine of 1.9 mg/dL. He developed CAROLYNE consistent with ATN following TMA in November. He has been hyperkalemic with a metabolic acidosis and with no signs of renal recovery. He has markedly hypervolemia with hypoalbuminemia. My recommendation is for timely initiation of hemodialysis as an inpatient and subsequent appropriate orthopedic intervention for his open foot wound. Mr. Mercado is refusing hemodialysis or surgical intervention. He is refusing labs. Goals of care at this time consistent with hospice care. Recommendations CAROLYNE/CKD: -- Vascular surgery consulted for TDC placement (scheduled for tomorrow). I spoke with vascular surgery this morning. Patient refused catheter placement. -- I would suggest continuing sodium bicarbonate and a daily dose of loop diuretic as tolerated for palliative management of renal failure -- May discontinue Phoslo at patient's wishes Osteomyelitis: -- Wound care Goals of care: -- DNR/DNI -- Discussed my conversation with patient and hospice option with Dr. Bernal this morning
[2016-12-12] MEDS: SODIUM BICARBONATE 8.4% INJ 150 MEQ in STERILE WATER 1000 ML 1,000 ML IV SCH (09:30)
[2016-12-12] MEDS ORDERED: AMOX875T PO ×2 (10:36→10:46)
[2016-12-12] MEDS ORDERED: FURO-85 PO ×2 (10:44→10:46)
[2016-12-12] MEDS ORDERED: SODI650T9 PO ×2 (10:44→10:46)
[2016-12-12] MEDS ORDERED: VTMD1000 PO (10:50)
[2016-12-12] MEDS ORDERED: FRRS300 PO (10:50)
--- NOTE | 2016-12-12 11:00 | Discharge Instructions ---
Discharge Instructions Date of Service Dec 14, 2016. Admission Reason for Admission: Acute Renal Failure Discharge Discharge Diagnosis / Problem: Acute kidney injury/failure, Osteomyelitis Discharge Goals Goal(s): Decrease discomfort, Improve function, Improve disease control, Therapeutic intervention, Prevent Disease Progression Activity Recommendations Activity Limitations: resume your previous activity Lifting Limitations: gradually increase as tolerated Exercise/Sports Limitations: as tolerated May Resume Sexual Activity: when tolerated Shower/Bathe: no limitations Driving or Machine Use: do not recommend driving . Instructions / Follow-Up Instructions / Follow-Up Dear Mr. Mercado, You were admitted to the hospital due to worsening of your foot after part of it was amputated. You were also found to have worsening kidney function necessitating hemodialysis. We have recommended dialysis for your kidneys and further amputation for your foot, however, you are declining all forms of treatment at this time. We discussed in detail, the risks of declining treatment, including infection that spreads into your blood and can make you really sick; Kidneys that continue to fail and cause discomfort but also can cause your heart to stop, cause a stroke or cause . We recommend continuation of 10 days of antibiotics. Please also take Sodium Bicarb and Lasix to help your kidneys. Calcium and Vit D supplementation is also encouraged. Please STOP Lisinopril and Metformin If you would like to manage your diabetes, you will need Insulin. Please follow up with your PCP to help you manage this as you will need some teaching on how to administer insulin. We recommend getting a life alert for your safety. You will have follow up appointments with your PCP, Orthopedics and Wound care. If you have any medical concerns, please call your PCP or come to the ER. Thank you Current Hospital Diet Patient's current hospital diet: Renal Diet Discharge Diet Recommended Diet: Diabetes Type 2 Diet Pending Studies Studies pending at discharge: no Laboratory Results Hemoglobin A1c Test 12/09/16 15:20 Range/Units Estimated Average Glucose 163 mg/dl Hemoglobin A1c 7.3 H 4.5-5.6 % Medical Emergencies . Who to Call and When: Medical Emergencies: If at any time you feel your situation is an emergency, please call 911 immediately. . Non-Emergent Contact Non-Emergency issues call your: Primary Care Provider Call Non-Emergent contact if: temperature is above 101, your pain is worsening , your pain is unusual for you, wound has increased drainage, wound has increased redness, wound has increased pain, you have any medication questions . . "Provider Documentation" section prepared by Hanna Razo. VTE Core Measure Inpt VTE Proph given/why not?: Unfractionated heparin SQ
--- NOTE | 2016-12-12 11:01 | Discharge Summary ---
Discharge Summary Date of Service Dec 12, 2016. Discharge Summary Admission Date: Dec 09, 2016 at 17:21 Discharge Date: Dec 12, 2016 Problems/Secondary Diagnoses: (1) Diabetes mellitus Status: Chronic (2) Hypertension Status: Chronic Hospital Course This includes examination of the patient, discharge planning, medication reconciliation, and communication with other providers. Discharge Instructions Please refer to the electronic Patient Visit Report (Discharge Instructions) for additional information.
[2016-12-12 13:09] LABS: HEMATOCRIT 38.6 % (42-52); MEAN CELL VOLUME 86.7 fL (80-100); MEAN CORPUSCULAR HEMOGLOBIN 30.6 pg (25-34); MEAN CORPUSCULAR HGB CONC 35.2 g/dl (32-36); PLATELET COUNT 238 K/uL (130-400); RED BLOOD COUNT 4.45 M/uL (4.7-6.1); WHITE BLOOD COUNT 11.66 K/uL (4.8-10.8)
[2016-12-12 14:09] LABS: BUN/CREATININE RATIO 10.1 (10-20); CALCIUM 7.9 mg/dl (8.5-10.1); CREATININE 8.7 mg/dl (0.60-1.40); POTASSIUM 5.3 mmol/L (3.5-5.1)
--- NOTE | 2016-12-12 18:18 | Family Medicine Progress Note ---
Progress Note Date of Service Dec 12, 2016. Subjective Pt evaluation today including: conversation w/ patient I was called to see the patient at 10 am this morning because he wanted to leave He expressed that he did not want any further treatment or interventions. He was insisting on leaving against medical advice. He has family members who have been through dialysis and he does not want to go through that. Constitutional: No chills, No fatigue, No fever, No weakness Eyes: No worsening of vision ENT: No hearing loss Respiratory: No cough, No dyspnea on exertion, No shortness of breath, No sputum Cardiovascular: No chest pain Abdomen: No nausea, No pain, No vomiting Musculoskeletal: + joint pain Objective Physical Exam General Appearance: no apparent distress Eyes: PERRL, EOMI ENT: hearing grossly normal Neck: supple, no adenopathy Respiratory/Chest: lungs clear, normal breath sounds, no respiratory distress, no accessory muscle use Cardiovascular: regular rate, rhythm Abdomen: normal bowel sounds, non tender, soft Extremities: + pedal edema, + pertinent finding (Right foot: partially amputated foot, necrotic / cyanotic edges, with visible bone) Neurologic/Psychiatric: alert, oriented x 3, + depressed affect Assessment and Plan This is a 76 y/o M who presented after concerns of non - healing right transmetatarsal amputation with exposed bone/no soft tissue coverage. He also has ESRD, for which he is refusing HD. Much time was spent today in attempts to explain his prognosis and outlook if he refuses all treatment. He was adamantly requesting to go home. We explained all risks of declining potentially life saving treatment. Discharge paperwork were placed. Patient was recommended to continue Oral Augmentin for 2 weeks, Sodium bicarb and Insulin for diabetes (which he also refused). We made a call to his friend to have him picked up later in the day. However, his daughter (whom he supposedly has not talked to in several years) called us and requested to speak to the patient. She tried to convince him to stay. We later learned that his transport was not going to be coming. His daughter also informed us that his living conditions are not ideal (unlivable) and that [facility] A[facility] has been in contact. The patient currently has no way of going home. Case management was involved today and attempted to arrange for home hospice. s/p Right foot transmetatarsal amputation, non healing: Wound care consulted Patient does not want any interventions- will likely need BKA Concern for osteomyelitis. IV abx transitioned to PO Augmentin ESRD, declining HD Vascular surgery saw patient today but he declined Permcath placement Risks of worsening renal failure, cardiac arrest, stroke, etc Hyperkalemia/ Metabolic Acidosis/ Secondary Hyperparathyroidism 2/2 ESRD Without dialysis, this is likely to worsen Appreciate nephrology recommendations Continue Sodium Bicarb daily Patient declines Phoslo Continue Vit D/ Calcium HTN Also likely to worsen without HD Continue Diabetes patient was on Metformin outpatient. Will need insulin but again, declining DVT proph -heparin SQ Charter Coordinator patient will need placement or home hospice- not safe to go home. director of patient financial services aware Code: DNR Transfer to med/surg - Goals of comfort care. Reviewed: Pt Seen/Exam by Me History Resident Physician Supervision Note: I interviewed and examined the patient. Discussed with Dr. Heller and agree with findings and plan as documented in the note. Any exceptions or clarifications are listed here: Had lengthy discussion with patient today about goals of care and end-of-life issues. He is fully aware of the risks of declining further treatment for his renal failure. He states that he has no pain in the foot and he is willing to take oral antibiotics for now. We reviewed the POLST form in great detail and he has chosen to be DO NOT RESUSCITATE/DO NOT INTUBATE, comfort measures only, a trial of IV fluids for dehydration if temporary, but no artificial feeding or nutrition, and for antibiotics in the future, he states depending on the situation, he would decide at that time if he would want IV antibiotics, by mouth antibiotics, or none. He prefers to not be in the hospital at all. He is refusing any further lab tests or needle sticks. He does not want his IV and. He states that his arms are in great pain from all the needle sticks. He just wants to go home and says that he has a friend and his friend's who is a nurse visit him daily and help him take care of himself. However, as noted in the resident progress note, his estranged daughter called and stated that is not safe for him to go home alone. Case management is involved in home hospice would not accept him because he does not have 24-hour care. They were willing to provide home health needs. Patient absolutely refuses to go to long term facility at this time. Vitals reviewed No acute distress, alert awake oriented 3, pleasant affect Regular rate and rhythm, no murmurs gallops rubs Clear to auscultation bilaterally, but decreased at the bases Abdomen obese, positive bowel sounds, soft nontender nondistended Extremities 2+ pitting edema bilaterally, right foot with transmetatarsal amputation and exposed bone on the plantar surface , with serous drainage, no real significant erythema to skin surrounding the amputation Patient is a 76-year-old male here with severe renal failure necessitating hemodialysis and diabetes with recent transmetatarsal amputation of the right foot. At this point, patient is declining hemodialysis because he has witnessed of relative go through it and does not 1 to do that. He says he is prepared to and wants to be comfortable until that point. He would like to do hospice, however he does not have 24-hour care at home and is refusing to go to long term facility. We will keep him overnight he can and continue to discuss the case with him and his family and case management In the hopes that we can come to an agreement to do what is best for him. -We'll stop IV fluids and IV medications, switched to by mouth Augmentin, he is not willing to take any insulin, he is willing to take a couple of medications for his renal failure. -POLST form filled out and completed and placed in the chart Documented By: Akosua Hinton
[2016-12-12] MEDS ORDERED: ERGOCALCIFEROL 50,000 INTER.UNIT CAP PO SCH (21:00)
[2016-12-13 00:24] VITALS: BP 116/79; PULSE 86; TEMP 36.3; O2SAT 93
[2016-12-13 07:12] VITALS: BP 111/72; PULSE 88; TEMP 36.3; O2SAT 90
[2016-12-13] MEDS: DOCUSATE SODIUM 100 MG CAP PO SCH ×2 (08:00→20:39)
[2016-12-13] MEDS: INSULIN ASPART 100 UNITS/ML 3 ML PEN SC SCH ×4 (08:23→21:33)
[2016-12-13] MEDS: AMOXICILLIN PO SCH ×2 (08:28→17:37)
[2016-12-13] MEDS: ASPIRIN 81 MG ECTAB PO SCH (08:28)
[2016-12-13] MEDS: CLAVULANATE PO SCH ×2 (08:28→17:37)
[2016-12-13] MEDS: FERROUS SULFATE 325 MG TAB PO SCH ×3 (08:29→17:38)
[2016-12-13] MEDS: PANTOprazole SOD 40 MG TAB PO SCH (08:30)
[2016-12-13] MEDS: SODIUM BICARBONATE 650 MG TAB PO SCH ×2 (08:31→20:39)
[2016-12-13] MEDS: CHOLECALCIFEROL 1000 INTER.UNIT TAB PO SCH (08:31)
[2016-12-13] MEDS: FUROSEMIDE 40 MG TAB PO SCH (08:53)
--- NOTE | 2016-12-13 09:17 | Family Medicine Progress Note ---
Progress Note Date of Service Dec 13, 2016. Subjective Pt evaluation today including: conversation w/ patient Pain: none Voiding: no voiding problems Patient seems more calm today Had conversation with his daughter last night about living conditions He continues to believe that his conditions are fine Constitutional: No chills, No fatigue, No fever, No weakness Eyes: No worsening of vision ENT: No hearing loss Respiratory: No cough, No dyspnea on exertion, No shortness of breath, No sputum, No wheezing Cardiovascular: No chest pain Abdomen: No diarrhea, No nausea, No pain, No vomiting Musculoskeletal: + joint pain, + swelling Male : No dysuria, No urinary frequency Objective Physical Exam General Appearance: no apparent distress, + obese Eyes: PERRL, EOMI ENT: hearing grossly normal Neck: supple, no adenopathy, thyroid normal, no JVD Respiratory/Chest: lungs clear, normal breath sounds, no respiratory distress, no accessory muscle use Cardiovascular: regular rate, rhythm Abdomen: normal bowel sounds, non tender, soft Extremities: non-tender, + pedal edema (2+ pitting edema ), + pertinent finding (right foot s/p transmetatarsal amputation, exposed bone, necrotic skin edges. ) Neurologic/Psychiatric: alert, normal mood/affect Assessment and Plan This is a 76 y/o M who presented after concerns of non - healing right transmetatarsal amputation with exposed bone/no soft tissue coverage. He also has ESRD, for which he is refusing HD. This continues to be the case today He was transferred to Med/surg. lab draws and most IV meds were discontinued. I did speak to the daughter over the phone and she expressed her concerns again about his living conditions. I have contacted case management with the hopes of coordinating care that is appropriate for him. The daughter will be contacted via phone to discuss options. Home hospice was not an option because he did not have 24 hour care at home. He seems to be a little more amenable to long-term facility today though that could change. Later today, I did speak to Case management and they were concerned that since he is capable of making decisions (and that his daughters dont have POA and are also estranged), we may not be able to enforce SNF, despite deplorable living conditions. However, it seems as that the patient is more amenable to SNF since having spoken to his daughters. Case management will continue to work on this. s/p Right foot transmetatarsal amputation, non healing: Wound care consulted- dressing change daily Patient does not want any interventions- will likely need BKA Concern for osteomyelitis remains PO augmentin- renally dosed Asked CM to make appts for PCP, Ortho and Wound clinic ESRD, declining HD Vascular surgery saw patient but he declined Permcath placement Risks of worsening renal failure, cardiac arrest, stroke, etc Hyperkalemia/ Metabolic Acidosis/ Secondary Hyperparathyroidism 2/2 ESRD Without dialysis, this is likely to worsen Appreciate nephrology recommendations Continue Sodium Bicarb daily Patient declines Phoslo Continue Vit D/ Calcium HTN Also likely to worsen without HD stop monitoring frequently Diabetes patient was on Metformin outpatient. Will need insulin but again, declining stop accuchecks DVT proph -heparin SQ- declines Code: DNR/DNI med/surg - Goals of comfort care. POLST form completed- comfort measures. History Resident Physician Supervision Note: I interviewed and examined the patient. Discussed with Dr. Heller and agree with findings and plan as documented in the note. Any exceptions or clarifications are listed here: Patient tells me today that he is also going home despite having discussion with case management reporting that he was possibly willing to go to SNF. He will talk to his daughter when she comes tonight. He does say that he would like to check his kidney function with blood work in the morning, but still adamant that he does not want dialysis if his renal function continues to worsen. Vitals reviewed No acute distress, alert awake oriented 3, pleasant affect Regular rate and rhythm, no murmurs gallops rubs Clear to auscultation bilaterally, but with crackles at the bases Abdomen obese, positive bowel sounds, soft nontender nondistended Extremities 2+ pitting edema bilaterally, right foot with transmetatarsal amputation and exposed bone on the plantar surface , with serous drainage, no real significant erythema to skin surrounding the amputation Patient is a 76-year-old male here with severe renal failure necessitating hemodialysis and diabetes with recent transmetatarsal amputation of the right foot. At this point, patient is declining hemodialysis because he has witnessed of relative go through it and does not want to do that. He says he is prepared to and wants to be comfortable until that point. He would like to do hospice, however he does not have 24-hour care at home and is back and forth about refusing to go to long-term facility. -Continue to work on placement issues as he is now possibly amenable to going to SNF -We'll check PRP in the morning -POLST form filled out and completed and placed in the chart -Continue by mouth antibiotics and wound care Documented By: Akosua Hinton
--- NOTE | 2016-12-13 10:45 | Nephrology Progress Note ---
Nephrology Progress Note Date of Service Dec 13, 2016. Chief Complaint CAROLYNE Subjective No acute events overnight. No complaints this morning. There has been no change in his wishes or goals of care. Tomi is hopeful that he can be discharged home soon. He stated this morning that he would be willing to consider a correction placement if it would expedite leaving the hospital but that he needs to talk with his daughter Irma. Review of Systems A complete review of systems was performed. Pertinent positives are noted above. All other systems are negative. Vital Signs Last 8 Hrs Date Time Temp Pulse Resp B/P Pulse Ox O2 Delivery O2 Flow Rate FiO2 12/13/16 07:30 Room Air 12/13/16 07:12 36.3 88 20 111/72 90 Room Air Last Recorded Weight Weight (Kilograms): 135.500 Physical Exam General Appearance: no apparent distress, + obese Head: normocephalic, atraumatic Eyes: normal inspection, sclerae normal ENT: normal ENT inspection, pharynx normal Neck: supple, no JVD Respiratory/Chest: lungs clear, + decreased breath sounds, + rales Cardiovascular: regular rate, rhythm, no gallop Abdomen/GI: non tender, soft, + pertinent finding (Abdominal edema) Extremities/Musculoskelatal: normal inspection, + pedal edema (+4 pitting) Neurologic/Psych: alert, oriented x 3 Family History No pertinent family history Social History Alcohol Use: occasionally Marital Status: single Housing Status: lives alone, other (two of his three daughters live locally. His oldest daughter is recovering from treatment for breast cancer. He has not been in contact with his youngest daughter for several years. She is living in [place].) Laboratory Results Past 24 Hours 12/12/16 12:50 12/12/16 12:50 Test 12/12/16 12:50 12/12/16 16:16 Red Blood Count 4.45 M/uL (4.7-6.1) Mean Corpuscular Volume 86.7 fL (80-100) Mean Corpuscular Hemoglobin 30.6 pg (25-34) Mean Corpuscular Hemoglobin Concent 35.2 g/dl (32-36) RDW Standard Deviation 49.4 fL (36.4-46.3) RDW Coefficient of Variation 16.0 % (11.5-14.5) Mean Platelet Volume 10.0 fL (7.4-10.4) Anion Gap 15.0 mmol/L (3-11) Est Creatinine Clear Calc Drug Dose 10.6 ml/min Estimated GFR () 6.3 Estimated GFR (Non- 5.4 BUN/Creatinine Ratio 10.1 (10-20) Calcium Level 7.9 mg/dl (8.5-10.1) Bedside Glucose 150 mg/dl (70-99) Allergies Coded Allergies: No Known Allergies (Unverified , 12/09/16) Medications Current Inpatient Medications Medications (Trade) Dose Ordered Sig/Marcelino Route Start Time Stop Time Status Last Admin Dose Admin Oxycodone/ Acetaminophen (Percocet 5-325mg Tab) `1-2 TABS FOR PAIN `1 TAB... Q4H PRN PO 12/09/16 15:45 12/23/16 15:44 Diphenhydramine HCl (Benadryl Cap) 25 mg Q8 PRN PO 12/09/16 15:45 01/08/17 15:44 Diphenhydramine HCl (Benadryl Inj) 25 mg Q8 PRN IV 12/09/16 15:45 01/08/17 15:44 Zolpidem Tartrate (Ambien Tab) 5 mg HSZ PRN PO 12/09/16 15:45 01/08/17 15:44 Metoclopramide HCl (Reglan Inj) 10 mg Q6H PRN IV 12/09/16 15:45 01/08/17 15:44 Ferrous Sulfate (Feosol Tab) 325 mg TIDM PO 12/09/16 18:00 01/08/17 17:59 12/13/16 08:29 325 MG Al Hydroxide/Mg Hydroxide (Maalox Susp) 30 ml Q6H PRN PO 12/09/16 15:45 01/08/17 15:44 Docusate Sodium (coLACE CAP) 100 mg BID PO 12/09/16 21:00 01/08/17 20:59 12/09/16 21:25 100 MG Pantoprazole Sodium (Protonix Tab) 40 mg QAM PO 12/10/16 09:00 01/09/17 08:59 12/13/16 08:30 40 MG Magnesium Hydroxide (Milk Of Magnesia Susp) 30 ml Q6H PRN PO 4/7/17 15:45 01/08/17 15:44 Aspirin (Ecotrin Tab) 81 mg DAILY PO 12/10/16 09:00 01/09/17 08:59 12/13/16 08:28 81 MG Glucose (Glucose 40% Gel) 15-30 GRAMS 15 GRAMS... UD PRN PO 12/09/16 15:45 01/08/17 15:44 Glucose (Glucose Chew Tab) 4-8 Tablets 4 Tabl... UD PRN PO 12/09/16 15:45 01/08/17 15:44 Dextrose (Dextrose 50% 50ML Syringe) 25-50ML OF 50% DW IV FOR... UD PRN IV 12/09/16 15:45 01/08/17 15:44 Glucagon (Glucagon Inj) 1 mg UD PRN SQ 12/09/16 15:45 01/08/17 15:44 Acetaminophen (Tylenol Tab) 650 mg Q4H PRN PO 12/09/16 17:30 01/08/17 17:29 Ondansetron HCl (Zofran Inj) 4 mg Q6H PRN IV 12/09/16 17:30 01/08/17 17:29 Nitroglycerin (Nitrostat Tab) 0.4 mg UD PRN SL 12/09/16 17:30 01/08/17 17:29 Insulin Aspart (novoLOG ASPART) SLIDING SCALE PARAMETER ACHS SC 12/09/16 21:00 01/08/17 20:59 Hydralazine HCl (HydrALAZINE INJ) 10 mg Q4H PRN IV 12/09/16 17:45 01/08/17 17:44 Sodium Bicarbonate (Sodium Bicarbonate Tab) 1,300 mg BID PO 12/10/16 21:00 01/09/17 20:59 12/13/16 08:31 1,300 MG Ergocalciferol (Vitamin D Cap) 50,000 interunit Mo@2100 PO 12/12/16 21:00 01/11/17 20:59 12/12/16 23:04 50,000 INTERUNIT Cholecalciferol (Vitamin D Tab) 2,000 inter.unit QAM PO 12/12/16 09:00 01/11/17 08:59 12/13/16 08:31 2,000 INTER.UNIT Furosemide (Lasix Tab) 40 mg QAM PO 12/13/16 08:00 01/12/17 08:59 12/13/16 08:53 40 MG Amoxicillin/ Clavulanate Potassium (Augmentin Tab) 250 mg BIDM PO 12/13/16 08:00 12/23/16 07:59 12/13/16 08:28 250 MG Impression (1) Acute renal insufficiency (2) Chronic kidney disease (3) Metabolic acidosis (4) Hypoalbuminemia (5) Hyperkalemia (6) Diabetes mellitus (7) Right Foot Osteomyelitis (8) Infection of right foot Mr. Tomi Mercado is a 76-year-old male with diabetes mellitus and chronic kidney disease. Baseline creatinine of 1.9 mg/dL. He developed CAROLYNE consistent with ATN following TMA in November. He presented to [facility] with hyperkalemia, metabolic acidosis and no signs of renal recovery. He has marked hypervolemia with hypoalbuminemia. We'd discussed timely initiation of hemodialysis and subsequent appropriate orthopedic intervention for his open foot wound. Mr. Mercado is refusing hemodialysis or surgical intervention. He is refusing labs. Goals of care at this time consistent with hospice care. I reviewed the plan of care with Dr. Hinton this morning. Recommendations CAROLYNE/CKD: -- I agree with sodium bicarbonate and a daily dose of loop diuretic as tolerated for palliative management of renal failure -- I will sign off at this time. Please call if there are any questions or concerns regarding the patient's care -- Mr. Mercado has my contact information as well. I offered to speak with his daughter again but stated that this was not necessary
--- NOTE | 2016-12-13 11:13 | Medical Consult ---
Consultation Note Date of Service Dec 13, 2016. Consultation Note LATE ENTRY: Attempted to perform consultation for permcath insertion yesterday, 12/12/16, however, pt refused to discuss or allow examination. He stated he was going home and accepts risk of .
[2016-12-13 16:00] VITALS: O2SAT 90
[2016-12-13 16:02] VITALS: BP 108/68; PULSE 88; TEMP 36.6; O2SAT 93
[2016-12-13 23:59] VITALS: BP 110/70; PULSE 80; TEMP 36.3; O2SAT 93
[2016-12-14 06:50] LABS: BUN/CREATININE RATIO 10.3 (10-20); CREATININE 9.3 mg/dl (0.60-1.40); POTASSIUM 5.2 mmol/L (3.5-5.1)
[2016-12-14 07:58] VITALS: BP 127/81; PULSE 84; TEMP 36.3; O2SAT 96
[2016-12-14] MEDS: DOCUSATE SODIUM 100 MG CAP PO SCH (08:00)
[2016-12-14] MEDS: INSULIN ASPART 100 UNITS/ML 3 ML PEN SC SCH ×3 (08:00→17:39)
[2016-12-14] MEDS: ASPIRIN 81 MG ECTAB PO SCH (08:20)
[2016-12-14] MEDS: AMOXICILLIN PO SCH ×2 (08:20→17:34)
[2016-12-14] MEDS: CLAVULANATE PO SCH ×2 (08:20→17:34)
[2016-12-14] MEDS: FERROUS SULFATE 325 MG TAB PO SCH ×3 (08:21→17:35)
[2016-12-14] MEDS: FUROSEMIDE 40 MG TAB PO SCH (08:21)
[2016-12-14] MEDS: SODIUM BICARBONATE 650 MG TAB PO SCH ×2 (08:22→17:35)
[2016-12-14] MEDS: CHOLECALCIFEROL 1000 INTER.UNIT TAB PO SCH (08:22)
[2016-12-14] MEDS: PANTOprazole SOD 40 MG TAB PO SCH (08:22)
[2016-12-14 09:37] LABS: ALBUMIN 2.3 G/DL (3.8-4.8); GAMMA GLOBULIN 1.5 G/DL (0.8-1.7); TOTAL PROTEIN 5.9 G/DL (6.2-8.3)
[2016-12-14] MEDS ORDERED: AMOX875T PO (14:04)
[2016-12-14 14:31] VITALS: BP 127/81; PULSE 84; TEMP 36.3; O2SAT 96
--- NOTE | 2016-12-14 20:59 | Discharge Summary ---
Discharge Summary Date of Service Dec 14, 2016. 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 History of amputation. POSSIBLE OSTEOMYELITIS. COMPARISON: None. DISCUSSION: There are postsurgical changes of a first through fifth transmetatarsal amputation. No destructive lesions are visualized. There are vascular calcifications present. Is difficult to visualize skin overlying the amputation site. Clinical correlation in this regard is advocated. IMPRESSION: Postsurgical changes of a transmetatarsal amputation. No conventional radiographic evidence of acute osteomyelitis. CHEST 2 VIEWS ROUTINE CLINICAL HISTORY: Pre-op COMPARISON STUDY: No previous studies for comparison. FINDINGS: The heart is enlarged. There is no overt failure. There is no focal pulmonary consolidation. There is blunting of the posterior costophrenic angle suggesting small effusions.[ IMPRESSION: Cardiomegaly and suspected small pleural effusions. No evidence of focal pulmonary consolidation RENAL ULTRASOUND HISTORY: Acute on chronic kidney injury. COMPARISON: None. FINDINGS: Right kidney: 11.0 cm. No hydronephrosis. Normal corticomedullary differentiation and cortical thickness. Left kidney: 12.5 cm. No hydronephrosis. Normal corticomedullary differentiation and cortical thickness. Focal cortical thickening at the interpolar region consistent with a prominent column of Nadeem. Bladder: No bladder wall thickening. The ureteral jets are not identified during the examination. Consultations: Orthopedics Nephrology Vascular Surgery (Hanna Jeffery MD) Medication Reconciliation New Medications: Amoxicillin & Pot Clavulanate (Augmentin 875-125 mg) 1 Tab Tab 1 TAB PO BID for 12 Days, #24 TAB Furosemide (Lasix) 20 Mg Tab 20 MG PO DAILY for 30 Days, #30 TAB Cholecalciferol (Vitamin D3) 1,000 Inter.unit Tab 2000 INTER.UNIT PO QAM for 30 Days, #30 TAB Ferrous Sulfate (Ferrous Sulfate) 325 Mg Tab 325 MG PO TIDM for 30 Days, #90 TAB Sodium Bicarbonate (Sodium Bicarbonate) 650 Mg Tab 650 MG PO BID for 30 Days, #60 TAB Continued Medications: Aspirin (Aspirin Ec) 81 Mg Tab 81 MG PO DAILY Discontinued Medications: Lisinopril (Zestril) 20 Mg Tab 20 MG PO DAILY, TAB Metformin Hcl (Glucophage) 500 Mg Tab 500 MG PO TID, TAB Discharge Exam Review of Systems: Constitutional: No chills, No fever, No sweats Eyes: No worsening of vision ENT: No hearing loss Respiratory: No cough, No dyspnea at rest, No dyspnea on exertion, No shortness of breath, No sputum, No wheezing Cardiovascular: No chest pain Abdomen: No diarrhea, No nausea, No pain, No vomiting Genitourinary - Male: No dysuria, No hematuria, No urinary frequency, No urinary urgency Physical Exam: General Appearance: no apparent distress Eyes: PERRL, EOMI ENT: hearing grossly normal Neck: supple, no adenopathy, thyroid normal Respiratory/Chest: no respiratory distress, no accessory muscle use, + decreased breath sounds Cardiovascular: regular rate, rhythm, no murmur Abdomen / GI: normal bowel sounds, non tender, soft Extremities: + pedal edema (2+ pitting edema), + pertinent finding (rt transmetatarsal amputation, necrotic skin edges, exposed bone, sensory loss) Neurologic/Psychiatric: alert, normal reflexes, + sensory deficit, + depressed affect (Hanna Jeffery MD) Hospital Course This is a 76 y/o M with h/o of DM, HTN who presented initially for surgical evaluation of failed right transmetatarsal amputation and subsequent wound dehiscence with bone that was visible (done at [facility]). He was supposedly sent to [place] for BKA, but the patient was refusing and left AMA. Upon return, his home nurse had concerns about his wound there after and referred him back to Orthopedics here. However, Initial labs done by orthopedics was concerning for acute renal failure with hyperkalemia and EKG changes. He was then directed to [facility] for further evaluation. On arrival he was noted to have peaked T waves on EKG and was given Calcium carbonate, d50, insulin and Kayexalate . He was admitted for further evaluation. Orthopedics had planned for and recommended BKA, however the patient was refusing. Therefore, orthopedics recommended antibiotics and correction of acute renal failure. Nephrology was consulted and recommend dialysis to correct his advanced and progressive acute renal failure. However, the patient was insisting in going home and not pursuing any interventions. His kidney function continued to worsen and despite much of the team's efforts to get him to comply, he wanted to go home. His estranged daughters attempted to convince him to pursue treatment as well. They were convinced about his living status at home being unsafe, however, he is capable of making his own decisions, that ultimately he could not be forced into a SNF. All risks of declining medical treatment were explained and the patient was in agreement. The patient was discharged with Augmentin for his foot and Lasix, Bicarb, Vit D for his kidneys. s/p Right foot transmetatarsal amputation, non healing: Wound care consulted- dressing change daily Patient does not want any interventions- refusing BKA Concern for osteomyelitis remains PO augmentin- renally dosed Asked CM to make appts for PCP, Ortho and Wound clinic Acute renal failure Vascular surgery saw patient but he declined Permcath placement Risks of worsening renal failure, cardiac arrest, stroke, etc declines Hemodialysis Hyperkalemia/ Metabolic Acidosis/ Secondary Hyperparathyroidism 2/2 ESRD Continue Sodium Bicarb daily Patient declines Phoslo Continue Vit D/ Calcium HTN Also likely to worsen without HD Diabetes patient was on Metformin outpatient. - but D/C due to kidney function Will need insulin but again, declining DVT proph -heparin SQ- declines Code: DNR/DNI med/surg - Goals of comfort care. POLST form completed- comfort measures. Total Time Spent: Greater than 30 minutes This includes examination of the patient, discharge planning, medication reconciliation, and communication with other providers. (Hanna Jeffery MD) Discharge Instructions Please refer to the electronic Patient Visit Report (Discharge Instructions) for additional information. (Hanna Jeffery MD) Follow-Up Orthopedics Wound Clinic PCP Nephrology (Hanna Jeffery MD) Reviewed: Pt Seen/Exam by Me (Akosua Hinton MD) History Resident Physician Supervision Note: I interviewed and examined the patient. Discussed with Dr. Heller and agree with findings and plan as documented in the note. Any exceptions or clarifications are listed here: Patient is doing well, he has no complaints, and is anxious to get home. Vitals reviewed No acute distress, alert awake oriented 3, pleasant affect, morbidly obese Regular rate and rhythm, no murmurs gallops rubs Clear to auscultation bilaterally, but with crackles at the bases Abdomen obese, positive bowel sounds, soft nontender nondistended Extremities 2 to 3 + pitting edema bilaterally, right foot with transmetatarsal amputation and exposed bone on the plantar surface , with serous drainage, no real significant erythema to skin surrounding the amputation Patient is a 76-year-old male here with severe renal failure necessitating hemodialysis and diabetes with recent transmetatarsal amputation of the right foot. Continues to decline hemodialysis. It appears case management is able to arrange hospice at home despite him not having 24-hour caregivers. He should follow-up with his PCP and orthopedics within 1-2 weeks. Documented By: Akosua Hinton (Akosua Hinton MD)
== END 2016-12-14 19:30 | disposition hospice, home (50) | DRG 699 ==
LOC: ENRESERVTM → ENRESERVDT → C.EDC 13:59 → CANBEDREQ 16:19 → C.2T 17:21 → C.4E 12-12 20:53
PROVIDERS: ADMIT Internal Medicine; ATTEND Family Medicine
DX: E11.22 Type 2 diabetes mellitus with diabetic chronic kidney disease (principal); E87.2 Acidosis; M86.171 Other acute osteomyelitis, right ankle and foot; I12.0 Hypertensive chronic kidney disease with stage 5 chronic kidney disease or end stage renal disease; N17.9 Acute kidney failure, unspecified; E11.69 Type 2 diabetes mellitus with other specified complication; E88.09 Other disorders of plasma-protein metabolism, not elsewhere classified; E87.5 Hyperkalemia; N18.6 End stage renal disease; E78.00 Pure hypercholesterolemia, unspecified; E86.0 Dehydration; Z80.3 Family history of malignant neoplasm of breast; Z87.891 Personal history of nicotine dependence; Z51.5 Encounter for palliative care; Z66 Do not resuscitate; Z99.2 Dependence on renal dialysis